=== PATIENT | female | born 1990 | race Caucasian/White ===

== ENCOUNTER 2019-07-20 07:57 | Outpatient (CLI) | payer OTHER, SELFPAY ==
--- NOTE | ~2019-07-20 | US_ITS ---
EXAMINATION: US right upper quadrant EXAM DATE: 07/20/2019 09:54 INDICATION: Right quadrant pain, nausea and vomiting. TECHNIQUE: Multiple grayscale and Doppler images of the abdomen right upper quadrant were obtained (b y a technologist who performed the scan) and subsequently reviewed. There is no prior study for kaley avelar. FINDINGS: The pancreatic head and body are normal in appearance. The pancreatic tail is not visualized. The l iver has normal echogenicity and contour. There are no focal liver lesions identified. There is no evidence of intrahepatic biliary duct dilation. Portal venous flow was seen in the hepatopedal, nor mal direction and has normal Doppler waveform. No right-sided hydronephrosis. Common bile duct measures 2-3 mm, which is normal. The gallbladder wall is upper limits of normal in thickness, with only mild amount of distention. No sonographic evidence of pericholecystic fluid. M ultiple gallstones. Technologist performing exam reports patient did not demonstrate sonographic Mur phy's sign. Please note that this sign is less reliable in patients who have received pain medicatio n. IMPRESSION: 1. Cholelithiasis. Reviewed, dictated and finalized at location B. 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 Cholelithiasis.
== END 2019-07-20 07:58 | disposition home or self-care (01) ==
LOC: CHSIMG 08:00
PROVIDERS: PCP Internal Medicine; Visit Provider Internal Medicine
DX: R10.11 Right upper quadrant pain (principal)
CPT/HCPCS: 76705

== ENCOUNTER 2019-10-13 05:07 | Outpatient (CLI) | payer OTHER, SELFPAY ==
[2019-10-13 18:41] LABS: SARS-CoV-2 RNA PCR Negative
== END 2019-10-13 05:08 | disposition home or self-care (01) ==
LOC: ANHCOVIDDT 05:07
PROVIDERS: PCP Internal Medicine; Visit Provider Surgery
DX: Z01.818 Encounter for other preprocedural examination (principal); Z11.59 Encounter for screening for other viral diseases
CPT/HCPCS: 87635; C9803; U0003

== ENCOUNTER 2019-10-13 08:30 | Outpatient (CLI) | payer OTHER, SELFPAY ==
[2019-10-13 09:24] LABS: Alanine Aminotransferase 82 U/L (4-35); Albumin Level 4.1 g/dL (3.5-5.1); Alkaline Phosphatase 79 U/L (38-126); Amylase 73 U/L (30-110); Aspartate Amino Transferase 46 U/L (14-36); Bilirubin,Total 0.7 mg/dL (0.2-1.3); Lipase 226 U/L (23-300)
== END 2019-10-13 08:31 | disposition home or self-care (01) ==
LOC: ANHSURGERY 08:33
PROVIDERS: PCP Internal Medicine; Visit Provider Surgery
DX: Z01.818 Encounter for other preprocedural examination (principal); K80.10 Calculus of gallbladder with chronic cholecystitis without obstruction
CPT/HCPCS: 36415; 80076; 82150; 83690; 86850; 86900; 86901

== ENCOUNTER 2019-10-16 02:06 | Day surgery (SDC) | payer OTHER, SELFPAY ==
[2019-10-12 10:40] VITALS: BMI 26.5
[2019-10-16] VITALS (9 sets, daily range): BP systolic 92–109; BP diastolic 52–73; PULSE 51–92; RESP 14–25; TEMP 36.6–37.2; O2SAT 99–100
[2019-10-16] MEDS: LACTATED RINGERS 1,000 ML 30 ML IV CONT ×2 (13:15→15:30)
--- NOTE | 2019-10-16 13:39 | WPDHPUPDATE1 ---
History and Physical Update Update Date/Time: 10/16/19 13:39 History and Physical has been reviewed, including an updated exam of the patient. There are NO changes in the patient's condition. Risks, benefits, and alternatives have been discussed and questions answered. Patient agrees to proceed with procedure.
--- NOTE | 2019-10-16 13:40 | WPDANESEPPF ---
Anes - Initial Pre Proc Eval Procedure: Operation Date: 10/16/19 15:00 Proposed Procedures p Laparoscopic Cholecystectomy Possible Open - Javon Nolasco DO Date/Time: 10/16/19 13:40 Surgeon: Javon Nolasco DO Pre Op Diagnosis: Symptomatic Cholelithiasis Patient Data Age: 28 Gender: F Height: 5 ft 3 in Weight: 68.04 kg Allergies Allergy/AdvReac Type Severity Reaction Status Date / Time adhesive tape Allergy Rash Verified 10/12/19 10:59 Home Medications Medication Instructions Recorded Confirmed Type No Home Medications 10/12/19 10/12/19 History Patient hx anesthesia problems: none Family hx anesthesia problems: none PMFSH Past Medical History Medical History Depression Endometriosis Kidney stone Over weight Post depression Smoker Surgical History Surgical History H/O knee surgery Family History Family History Father Diabetes mellitus Sibling Diabetes mellitus Grandparent Liver problem Hep C w/o coma, chronic Social History Social History Smoking packs per day: 0.5 Smoking cigarettes per day: 10.0 Years smoked: 13 Smoking pack-years: 6.50 Smoking status: Current every day smoker Tobacco type: cigarettes Substance use: never Gender identity (if verbalized by the patient): Female Spiritual care concerns: No Anes - Eval Final PreProcedure Day of Procedure 10/16/19 13:40 Patient weight: overweight Heart: regular rate and rhythm Lungs: clear to auscultation Airway: Mallampati scale class II Neurological: alert and oriented Last oral intake: >/= 8 hours ASA classification: II Emergent: no Anesthetic plan: proceed Anesthesia type and monitoring: general ETT and standard monitoring Informed Consent: The patient's anesthetic plan and its attendant risks and benefits were discussed with the patient/family/POA. Questions were solicited and answers provided to the satisfaction of the patient/family/POA.
[2019-10-16] MEDS: ceFAZolin 2 GM/D5W 50 ML 2 GM/50 ML BAG IVPB (13:50)
[2019-10-16] MEDS: IBUPROFEN IV 800 MG/200 ML 800 MG/200 ML BAG 400 MG IVPB (14:06)
[2019-10-16] MEDS: BUPIVACAINE/EPINEPHRINE 0.5% 30 ML VIAL INFILTRATE (14:10)
--- NOTE | 2019-10-16 14:43 | PM.PROC ---
Procedure Note - Detailed Date of procedure: 10/16/19 Pre-op diagnosis: Symptomatic Cholelithiasis Post-op diagnosis: same Procedure performed: Laparoscopic Cholecystectomy Description of procedure: Procedure as well as risks, benefits, and alternatives were discussed with patient. Written consent was obtained and placed in chart prior to procedure. The patient was brought back to surgical suite. Patient was placed in supine position on operating table. Time-out was done to confirm patient and procedure. Patient was then intubated by the anesthesia department. Abdomen was prepped and draped in sterile fashion using chlorhexidine prep. 0.5% bupivacaine with epinephrine was infiltrated at each site of incision. A 5 millimeter incision was made near the umbilicus, and a 5 millimeter Optiview trocar was advanced through the abdominal layers under direct visualization. Once inside the abdominal cavity, carbon dioxide was insufflated to create a pneumoperitoneum. The camera was inserted and the abdomen was inspected. No immediate abnormalities were identified. The patient was placed in reverse Trendelenburg position and rotated slightly to the left. An 11 millimeter incision was made in the subxiphoid region, and an 11 millimeter trocar was inserted under direct visualization. Two 5 millimeter incisions were made in the right upper quadrant, and two 5 millimeter trocars were inserted under direct visualization. The gallbladder was identified and grasped at the fundus and retracted superiorly. It was then grasped at the infundibulum retracted laterally. Careful dissection around the neck of the gallbladder was performed using blunt dissection with a [place] grasper and hook electrocautery. The cystic duct was identified, and a window was created behind it. The cystic artery was also identified and a window was created behind it. The critical view of safety was identified, visualizing the cystic duct running directly into the neck of the gallbladder, and the cystic artery running directly into the wall of the gallbladder. A 5 millimeter clip tank farm operator was then used to place 2 clips proximally and 1 clip distally on both the cystic duct and cystic artery. They were then both transected using endoscopic scissors. Once safely away from the celeste hepatitis, the gallbladder was dissected free from the liver bed using hook electrocautery. Hemostasis was achieved along the way. The gallbladder was removed completely and then removed through the subxiphoid port. The liver bed was then inspected. Hemostasis appeared adequate, and our clips appeared secure. The area was gently irrigated with sterile saline. No other abnormalities were seen. The patient was flattened out in bed, and 1 final inspection was made around the abdominal cavity. The subxiphoid port was removed, and a Alton Crispin cone was used to approximate the fascia with an 0-Vicryl simple interrupted suture. The remaining ports were then removed under direct visualization, the camera was removed, and the pneumoperitoneum was released. The skin of the incisions was approximated using 4-0 Monocryl subcuticular sutures. Exofin glue was applied on top. The patient was then awakened from anesthesia, extubated, and transferred to recovery. Anesthesia: GETA and local (0.5% bupivicaine with epi) Surgeon: Javon Nolasco DO Estimated blood loss (mL): 10 Drains: No Packing: No Pathology: yes Complications: No immediate complications Condition: stable (Patient tolerated procedure well, and is currently resting comfortably in recovery.) Disposition: same day Findings: Lupe is a 28 y/o female who presents with RUQ abdominal pain. She states she has been experiencing symptoms on and off for about 1 month now. She doesn't notice any paticular foods that make her symptoms worse. She describes the pain as aching and sharp. U/S was done at on 07/20/19 which showed cholelithiasis. CBD measured 2-3mm. Disc
[2019-10-16] MEDS: ONDANSETRON INJ 4 MG/2 ML VIAL IV PUSH (15:21)
== END 2019-10-16 16:31 | disposition home or self-care (01) ==
PROVIDERS: PCP Internal Medicine; Visit Provider Surgery
PROC: 0FT44ZZ Resection of Gallbladder, Percutaneous Endoscopic Approach (ICD-10-PCS; CPT 47562; principal; 2019-10-16 15:00)
DX: K80.10 Calculus of gallbladder with chronic cholecystitis without obstruction (principal); F17.210 Nicotine dependence, cigarettes, uncomplicated
CPT/HCPCS: 47562; 88304; J0131; J0690; J1100; J1741; J2250; J2405; J2704; J2710; J3010; J7030; J7120

== ENCOUNTER 2019-12-21 02:57 | Outpatient (CLI) | payer OTHER, SELFPAY ==
[2019-12-22 22:30] LABS: SARS-CoV-2 RNA PCR Negative
== END 2019-12-21 02:58 | disposition home or self-care (01) ==
LOC: ANHCOVIDDT 02:57
PROVIDERS: PCP Internal Medicine; Visit Provider Obstetrics & Gynecology
DX: Z01.812 Encounter for preprocedural laboratory examination (principal); Z11.59 Encounter for screening for other viral diseases
CPT/HCPCS: 87635; C9803; U0003

== ENCOUNTER 2019-12-23 02:14 | Day surgery (SDC) | payer OTHER, SELFPAY ==
[2019-12-09 14:48] VITALS: BMI 26.6
--- NOTE | 2019-12-22 13:44 | WPDANESEPPF ---
Anes - Initial Pre Proc Eval Procedure: Operation Date: 12/23/19 09:00 Proposed Procedures p Laparoscopic Bilateral Tubal Ligation with Cautery - Piyush Carmona MD Date/Time: 12/22/19 13:44 Surgeon: Piyush Carmona MD Pre Op Diagnosis: sterilization Patient Data Age: 29 Gender: F Height: 1.63 m Weight: 70.31 kg Allergies Allergy/AdvReac Type Severity Reaction Status Date / Time adhesive tape Allergy Rash Verified 12/09/19 14:49 Home Medications Medication Instructions Recorded Confirmed Type alprazolam 0.5 mg PO DAILY 12/23/19 12/23/19 History Patient hx anesthesia problems: none Family hx anesthesia problems: none PMFSH Past Medical History Medical History Anxiety Depression Endometriosis Kidney stone Over weight Post depression Smoker Surgical History Surgical History H/O knee surgery Hx laparoscopic cholecystectomy Social History Social History Smoking packs per day: 0.5 Smoking cigarettes per day: 10.0 Years smoked: 15 Smoking pack-years: 7.50 Smoking status: Current every day smoker Tobacco type: cigarettes Substance use: never Substance use type: other Other substance usage details: SMOKES CBD Last use: 12/08/19 Gender identity (if verbalized by the patient): Female Spiritual care concerns: No Anes - Eval Final PreProcedure Day of Procedure 12/22/19 13:44 Patient weight: overweight Heart: regular rate and rhythm Lungs: clear to auscultation and normal air movement Airway: Mallampati scale class II Neurological: alert and oriented Last oral intake: >/= 8 hours ASA classification: II Emergent: no Anesthetic plan: proceed Anesthesia type and monitoring: general ETT Informed Consent: The patient's anesthetic plan and its attendant risks and benefits were discussed with the patient/family/POA. Questions were solicited and answers provided to the satisfaction of the patient/family/POA.
[2019-12-23] VITALS (9 sets, daily range): BP systolic 91–111; BP diastolic 48–74; PULSE 42–98; RESP 14–20; TEMP 36.3–36.7; O2SAT 97–100
[2019-12-23] MEDS: ACETAMINOPHEN 500 MG TABLET 1000 MG PO (07:40)
[2019-12-23] MEDS: LACTATED RINGERS 1,000 ML 30 ML IV CONT ×2 (07:45→09:17)
[2019-12-23] MEDS: KETOROLAC 15 MG/ML VIAL (*BKC) IV PUSH (07:45)
--- NOTE | 2019-12-23 08:21 | WPDHPUPDATE1 ---
History and Physical Update Update Date/Time: 12/23/19 08:21 History and Physical has been reviewed, including an updated exam of the patient. There are NO changes in the patient's condition. Risks, benefits, and alternatives have been discussed and questions answered. Patient agrees to proceed with procedure.
--- NOTE | 2019-12-23 09:06 | SUR.OPER ---
EBL:10cc
--- NOTE | 2019-12-23 09:12 | PM.PROC ---
Procedure Note - Detailed Date of procedure: 12/23/19 Pre-op diagnosis: sterilization Post-op diagnosis: same Procedure performed: Laparoscopic bilateral tubal ligation Description of procedure: Patient was taken the operating room. She has prepped draped in the dorsal lithotomy position after induction of general anesthesia. A 5 mm abdominal incision was made in left upper quadrant of the abdomen with scalpel. A 5 mm trocars inserted the intra-abdominal cavity under direct visualization of the scope. Pneumoperitoneum was achieved. A 5 mm periumbilical incision was made using a scalpel on the abdominal scan. A 5 mm trocar was inserted the intra-abdominal cavity under visualization of the scope. The fallopian tube was grasped with the bipolar cautery in the ampullary region. It was completely desiccated in a 1.5 cm area of the fallopian tube. This was performed in identical fashion on the contralateral side. The instruments were withdrawn. The pneumoperitoneum was reduced. The trocars were removed. The skin was closed with subcuticular 4 Monocryl. This incisions were covered with Dermabond. The patient tolerated the procedure well. She was taken to recover room in stable condition. Anesthesia: GETA Surgeon: Piyush Carmona MD Estimated blood loss (mL): 10 Drains: No Packing: No Pathology: none sent Complications: No immediate complications Condition: stable Disposition: PACU Findings: Normal female pelvic anatomy.
--- NOTE | 2019-12-23 11:11 | SUR.PHASEII ---
1110- Instructions given to pt. ride called to come. pt without c/o pain or nausea.
== END 2019-12-23 11:45 | disposition home or self-care (01) ==
PROVIDERS: PCP Internal Medicine; Visit Provider Obstetrics & Gynecology
PROC: (CPT 58671; principal; 2019-12-23 09:00)
DX: Z30.2 Encounter for sterilization (principal); F41.8 Other specified anxiety disorders; F17.210 Nicotine dependence, cigarettes, uncomplicated
CPT/HCPCS: 58670; A9270; J1100; J1885; J2250; J2405; J2704; J2710; J3010; J7120

== ENCOUNTER 2020-07-24 09:51 | Emergency (ER) | payer OTHER, SELFPAY ==
[2020-07-24 10:07] VITALS: BP 123/75; PULSE 77; RESP 16; TEMP 36.9; O2SAT 97
--- NOTE | 2020-07-24 10:28 | ED.DENTAL ---
HPI - Dental/Oral General Chief complaint: Dental/Oral Stated complaint: possible infected tooth Source: patient Mode of arrival: ambulatory Limitations: no limitations History of Present Illness HPI Narrative: this is a 29-year-old female that has chronic dental caries and over the last day has been having increased pain with swelling in her right upper premolar area with surrounding gum inflammation with a tender submandibular gland on the right with some lower jaw swelling and tenderness. Currently there is no fever chills no nausea vomiting no shortness of breath, does have an appointment to see her dentist. Has tried [id number] Aleve with some moderate relief. MD Complaint: tooth pain Teeth map: 1. dental pain with gum inflammation Onset (ago): day(s) Duration: constant Severity: moderate Severity scale (1-10): 6 Relieving factors: NSAIDs Exacerbating factors: chewing and cold Context: history of dental caries Associated symptoms: gum swelling Related Data Home Medications Medication Instructions Recorded Confirmed escitalopram oxalate 10 mg PO DAILY 07/24/20 07/24/20 Allergies Allergy/AdvReac Type Severity Reaction Status Date / Time adhesive tape Allergy Rash Verified 12/09/19 14:49 Review of Systems Review of Systems: All systems reviewed & are unremarkable except as noted in HPI and below PMFSH Past Medical History Medical History Anxiety Depression Endometriosis Kidney stone Over weight Post depression Smoker Surgical History Surgical History H/O knee surgery Hx laparoscopic cholecystectomy Family History Family History Father Diabetes mellitus Sibling Diabetes mellitus Grandparent Liver problem Hep C w/o coma, chronic Social History Social History Smoking packs per day: 0.5 Smoking cigarettes per day: 10.0 Years smoked: 15 Smoking pack-years: 7.50 Smoking status: Current every day smoker Tobacco type: cigarettes Substance use: never Substance use type: other Other substance usage details: SMOKES CBD Last use: 12/08/19 Gender identity (if verbalized by the patient): Female Spiritual care concerns: No Exam Const: General: no acute distress Orientation/consciousness: patient oriented x3 HENMT: Head: normal to inspection Eyes: Conjunctivae: conjunctivae normal Pupils: Equal, round and reactive pupils present Neck: Neck: normal visual inspection and no meningeal signs Other: Right submandibular gland swelling and tenderness Chest: Chest palpation & inspection: normal inspection of the chest Resp: Effort & Inspection: normal respiratory effort Auscultation: clear to auscultation bilaterally Cardio: Rate: regular rate Rhythm: regular rhythm GI: Auscultation: normal bowel sounds : General: Yes no CVA tenderness Skin: General skin exam: normal color Rashes: no rashes Extrem: General: normal to inspection Course Course Emergency Course: patient received amoxicillin and advised patient to take medicine that sent to her pharmacy and follow-up with her dentis Vital Signs Vital signs: Vital Signs Temperature 36.9 C 07/24/20 10:07 Pulse Rate 77 07/24/20 10:07 Respiratory Rate 16 07/24/20 10:07 Blood Pressure 123/75 07/24/20 10:07 Pulse Oximetry 97 07/24/20 10:07 Temperature 36.9 C 07/24/20 10:07 Pulse Rate 77 07/24/20 10:07 Respiratory Rate 16 07/24/20 10:07 Blood Pressure 123/75 07/24/20 10:07 Pulse Oximetry 97 07/24/20 10:07 Critical Care Time Critical Care Time Critical Care Time: No Discharge Plan Discharge Clinical Impression: Dental abscess, Toothache Patient Disposition: Home, Self-Care Condition: Stable Instructions: Antibiotic Form, Dental Abscess (ED), Toothache (ED) Additional
[2020-07-24 10:36] VITALS: PULSE 80; RESP 18; O2SAT 99
[2020-07-24] MEDS: AMOXICILLIN 500 MG CAPSULE PO (10:36)
== END 2020-07-24 10:40 | disposition home or self-care (01) ==
PROVIDERS: Emergency Provider Emergency Medicine; PCP Internal Medicine
DX: K04.7 Periapical abscess without sinus (principal); K08.89 Other specified disorders of teeth and supporting structures
CPT/HCPCS: 99283; A9270

== ENCOUNTER 2021-11-17 15:18 | Outpatient (CLI) | payer OTHER, SELFPAY ==
--- NOTE | ~2021-11-17 | XR_ITS ---
XR wrist RT min 3V DATE: 11/17/2021 15:50 INDICATION: Left wrist pain after hearing pops in wrist since last night TECHNIQUE: 4 views COMPARISON: None FINDINGS: No fracture or dislocation, periosteal reaction or bone destruction, chondrocalcinosis, roopa nt space narrowing, erosive change. There is an elongated ulnar styloid process. IMPRESSION: Elongated ulnar styloid process Reviewed, dictated and finalized at location A.
== END 2021-11-17 15:19 | disposition home or self-care (01) ==
LOC: CHSIMG 15:20
PROVIDERS: PCP Internal Medicine; Visit Provider Nurse Practitioner Family
DX: M25.531 Pain in right wrist (principal)
CPT/HCPCS: 73110

== ENCOUNTER 2021-12-05 14:01 | Outpatient (RCR) | payer OTHER, SELFPAY ==
--- NOTE | 2021-12-05 15:12 | OTOPEVAL ---
Thank you for referring Lupe Birch to [facility] [place]Note 2[place]? The patient is scheduled to be seen for therapy? ____x/week for ___ weeks. Please review, sign, date and return this plan of care ASHANTI. I agree with and certify that the following plan of care is medically necessary. Referring Physician Date Admitting Provider: Attending Provider: Elda Vargas MD Referring Provider: *OT Outpatient Evaluation Start: 12/05/21 13:25 Freq: Status: Active Protocol: Document 12/05/21 14:04 [facility] (Rec: 12/05/21 15:12 [facility] [id number]) Therapy Assessment Status Assessment Status Assessment Status Evaluation Outpatient Past Medical History Neurological History Hx Neurological Disorders No Significant History Cardiovascular History Hx Cardiac Disorders No Significant History Respiratory History Hx Respiratory Disorders No Significant History Gastrointestinal History Hx Cholecystectomy Yes: 09/2019 Hx Gall Bladder Disease Yes Genitourinary History Hx Urinary Tract Infection Yes Musculoskeletal History Hx Orthopedic Surgery Yes: knee surgery Hematological History Hx Hematological Disorders No Significant History Endocrine History Hx Endocrine Disorders No Significant History HEENT History Hx HEENT Disorders No Significant History Integumentary History Hx Skin Disorders No Significant History Reproductive History Hx Endometriosis Yes Hx Sexually Transmitted Diseases Yes: trichomoniasis Psychosocial History Hx Anxiety Yes Hx Depression Yes Pain History History of Any Previous or Ongoing No Significant History Instance of Pain Anesthesia History Hx Anesthesia Reactions No Significant History Evaluation Information Problem Diagnosis R wrist pain Onset 11/19/21 Cause R wrist sprain Additional Evaluation Detail Quick DASH: 68.2% Subjective Information Patient reports that she Query Text:As Reported By Patient/ grabbed a bar using her R hand Family to lower herself to sitting on a large slide. She said that it popped a couple times, had pain and immediate swelling. Patient had X-rays taken that were negative. Patient arrives with R wrist support brace donned and reports that she has been wearing it and taking an anti- flammatory medication. Patient reports that she feels
--- NOTE | 2022-01-12 16:24 | OTOPEVAL ---
Thank you for referring Lupe Birch to [facility].? The patient is scheduled to be seen for therapy? ____x/week for ___ weeks. Please review, sign, date and return this plan of care ASHANTI. I agree with and certify that the following plan of care is medically necessary. Referring Physician Date Admitting Provider: Attending Provider: Elda Vargas MD Referring Provider: *OT Outpatient Evaluation Start: 12/05/21 13:25 Freq: Status: Active Protocol: Document 01/12/22 11:13 [facility] (Rec: 01/12/22 12:14 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 Subjective Information The patient reports minimal Query Text:As Reported By Patient/ pain throughout the day and Family asks about switching to a different brace. The patient reports that she can move her wrist easier and with decreased pain. Pain Assessment Timing of Pain Assessment Timing of Pain Assessment Pre-Treatment Pain Scale Pain Scale Used Numeric (1 - 10) Self Report Pain Assessment Right Wrist(s) Reported Pain Level 2 Pain Score Pain Score 2: Self Report Interventions Used Interventions Used By Clinicians Electrical Stimulation,Heat Upper Extremity Range of Motion General Upper Extremity Range of Motion Gross Upper Extremity Range of Motion Wrist flexion: 55 degrees Comments Wrist extension: 55 degrees Upper Extremity Muscle Strength Testing General Upper Extremity Strength Gross Upper Extremity Strength Comments R wrist flexion/extension 5/5 Hand Assembler Clip On Sunglasses/Pinch Strength Assessment Hand Dominance Hand Dominance Right Hand Right Assembler Clip On Sunglasses Strength (lbs) 36 Lateral Pinch Strength (lbs) 8.5 9-Hole Peg Hand Test Hand Right Hand Dominance Right Scoring Time (seconds) 22 Interpretation Within Normal Range General Exercise General Exercises Side Right Exercise Type Resistive,Stretching Exercise Description PROM stretching into wrist Query Text:Record Sets, Reps, flexion/extension holding for Resistance, and Position 10 seconds 1x10 Wrist maze performing 1x10 [place] theraputty exercises performing composite grasps 2x10 Modalities Electri
== END 2022-01-22 23:59 | disposition home or self-care (01) ==
LOC: CHSOT 14:01
PROVIDERS: PCP Internal Medicine; Visit Provider Internal Medicine
DX: S63.501A Unspecified sprain of right wrist, initial encounter (principal)
CPT/HCPCS: 97014; 97110; 97140; 97165; 97530; G0283

== ENCOUNTER 2022-08-10 19:20 | Emergency (ER) | payer OTHER, SELFPAY ==
[2022-08-10] VITALS (10 sets, daily range): BP systolic 99–122; BP diastolic 58–74; PULSE 62–74; RESP 16–19; TEMP 36.4–37.1; O2SAT 96–99
--- NOTE | ~2022-08-10 | CT_ITS ---
EXAMINATION: CT BRAIN W/O DATE: 08/10/2022 21:48 INDICATION: Migraine headache worse than normal. TECHNIQUE: Computed tomography (CT) of the head was performed without intravenous contrast. The dose- length product was 908.00 mGy-cm. Automated exposure control and iterative reconstruction technique w ere employed. COMPARISON: CT dated 04/26/2014 FINDINGS: Normal brain parenchymal volume for age. Normal mayo-white differentiation. No acute intrac ranial hemorrhage, infarction, mass or mass effect. No ventriculomegaly or midline shift. Midline sagittal images demonstrate a normal corpus callosum, c raniovertebral junction and sella turcica. Basilar cisterns are patent. Paranasal sinuses and mastoids are pneumatized. No depressed skull fractures. IMPRESSION: 1. No acute intracranial abnormality. Reviewed, dictated and finalized at location A.
[2022-08-10] MEDS: SODIUM CHLORIDE 0.9% IV 1,000 ML 999 ML IV CONT (21:32)
[2022-08-10] MEDS: METOCLOPRAMIDE HCL INJ 10 MG/2 ML VIAL IV PUSH (21:33)
[2022-08-10] MEDS: KETOROLAC 30 MG/ML VIAL (*BKC) IV PUSH (21:36)
--- NOTE | 2022-08-10 21:46 | PC.NURSE ---
Patient in CT at this time.
--- NOTE | 2022-08-10 23:04 | ED.HA ---
HPI - Headache General Chief Complaint: Headache <DELORES Ang Last Filed: 08/10/22 23:19> Stated Complaint: migraines <DELORES Ang Last Filed: 08/10/22 23:19> Time Seen by Provider: 08/10/22 20:11 <DELORES Ang Last Filed: 08/10/22 23:19> Source: patient <DELORES Ang Last Filed: 08/10/22 23:19> Mode of arrival: ambulatory <DELORES Ang Last Filed: 08/10/22 23:19> Limitations: no limitations <DELORES Ang Last Filed: 08/10/22 23:19> History of Present Illness HPI Narrative: Patient is a 31-year-old female who presents to the ED with report of a migraine headache. Patient reports having a headache for the last 3 to 4 days. She does have a history of migraines and states this headache feels similar. Today, the headache became much more severe, which prompted her presentation. Patient also reports having nausea, photophobia, intermittent blurry vision, and fatigue, but denies any fever, neck pain, abdominal pain, vomiting, vision loss, weakness, confusion, head injury. <DELORES Ang Last Filed: 08/10/22 23:19> Related Data Home Medications: Home Medications Medication Instructions Recorded Confirmed escitalopram oxalate 10 mg tablet 10 mg PO DAILY 07/24/20 07/24/20 <DELORES Ang Last Filed: 08/10/22 23:19> Allergies/Adverse Reactions: Allergies Allergy/AdvReac Type Severity Reaction Status Date / Time adhesive tape Allergy Rash Verified 08/10/22 19:21 <DELORES Ang Last Filed: 08/10/22 23:19> Review of Systems Review of Systems: CONSTITUTIONAL: Denies fever, chills, or sweats. EYES: See HPI. ENT: Denies rhinorrhea, congestion, sore throat. CARDIOVASCULAR: Denies chest pain. RESPIRATORY: Denies dyspnea. GASTROINTESTINAL: See HPI. MUSCULOSKELETAL: Denies neck pain, back pain, joint pain, or myalgia. NEUROLOGIC: See HPI. <Suki Lay PA-C - Last Filed: 08/10/22 23:19> All systems reviewed & are unremarkable except as noted in HPI and below <Suki Lay PA-C - Last Filed: 08/10/22 23:19> [facility] Past Medical History Medical History: Medical History Anxiety Depression Endometriosis Kidney stone Over weight Post depression Smoker <Suki Lay PA-C - Last Filed: 08/10/22 23:19> Surgical History Surgical History: Surgical History H/O knee surgery Hx laparoscopic cholecystectomy <Suki Lay PA-C - Last Filed: 08/10/22 23:19> Family History Family History: Family History Father Diabetes mellitus Sibling Diabetes mellitus Grandparent Liver problem Hep C w/o coma, chronic <Suki Lay PA-C - Last Filed: 08/10/22 23:19> Social History Social History: Social History Smoking packs per day: 0.5 Smoking cigarettes per day: 10.0 Years smoked: 15 Smoking pack-years: 7.50 Smoking status: Current every day smoker Tobacco type: cigarettes Substance use: never Substance use type: other Other substance usage details: SMOKES CBD Last use: 12/08/19 Gender identity (if verbalized by the patient): Female Spiritual care concerns: No <Suki Lay PA-C - Last Filed: 08/10/22 23:19> Exam Narrative: GENERAL: Well appearing, obese, non-toxic, in no acute distress. HEAD: Normocephalic, atraumatic. EYES: PERRL/EOMI, conjunctivae clear bilaterally. No nystagmus. NECK: Supple. No adenopathy, no masses. No meningeal signs. RESPIRATORY: Airway patent, respirations nonlabored. Clear to auscultation bilaterally, no rales, rhonchi, wheezing. CARDIOVASCULAR: Regular rate and rhythm without murmurs, rubs, or gallops. Peripheral pulses 2+
== END 2022-08-10 23:20 | disposition home or self-care (01) ==
PROVIDERS: Emergency Provider Physician Assistant; PCP Internal Medicine
DX: G43.909 Migraine, unspecified, not intractable, without status migrainosus (principal); N80.9 Endometriosis, unspecified; E66.3 Overweight; Z68.30 Body mass index [BMI] 30.0-30.9, adult; F41.9 Anxiety disorder, unspecified; F32.A Depression, unspecified; F17.210 Nicotine dependence, cigarettes, uncomplicated; Z87.442 Personal history of urinary calculi
CPT/HCPCS: 70450; 81025; 96361; 96374; 96375; 99284; J0131; J1100; J1885; J2765; J7030

== ENCOUNTER 2023-07-19 15:24 | Emergency (ER) | payer OTHER, SELFPAY ==
[2023-07-19 15:31] VITALS: BP 126/69; PULSE 105; RESP 16; TEMP 37.2; O2SAT 93
--- NOTE | 2023-07-19 15:33 | ED.HA ---
HPI - Headache General Chief Complaint: Headache Stated Complaint: Migrane Time Seen by Provider: 07/19/23 15:33 Source: patient Mode of arrival: ambulatory Limitations: no limitations History of Present Illness HPI Narrative: patient is a 32-year-old female with sinus pain and pressure and headache. She has history of migraines as well. Her menstrual cycle was 2 weeks ago. MD elicited complaint: headache and migraine Onset (ago): day(s) (3) Onset description: gradually Location: left, frontal, facial and maxillary Severity: moderate Pain scale (0-10): 5 Quality & Timing: sharp, squeezing, constant, progressively worsening and similar to previous headaches Exacerbating factors: none Relieving factors: nothing Associated symptoms: none Treatments prior to arrival: none Related Data Allergies Allergy/AdvReac Type Severity Reaction Status Date / Time adhesive tape Allergy Rash Verified 07/19/23 15:35 Review of Systems Review of Systems: All systems reviewed & are unremarkable except as noted in HPI and below Constitutional: Constitutional: Reports no additional constitutional complaints Eyes: Eyes: Reports no additional eye complaints ENT: Reports system reviewed and no additional complaints, except as documented Cardiovascular: Cardiovascular: Reports no additional cardiovascular complaints Respiratory: Respiratory: Reports no additional respiratory complaints Gastrointestinal: Gastrointestinal: Reports no additional gastrointestinal complaints Genitourinary: Genitourinary: Reports no additional female genitourinary complaints Musculoskeletal: Musculoskeletal: Reports no additional musculoskeletal complaints Integumentary/Breasts: Skin/Breast: Reports system reviewed and no additional complaints, except as docu Neurologic: Reports system reviewed and no additional complaints, except as documented Psychiatric: Psychiatric: Reports no additional psychiatric complaints Endocrine: Endocrine: Reports no additional endocrine complaints Hematologic/Lymphatic: Hematologic/Lymphatic: Reports no additional hematologic/lymphatic complaints Allergic/Immunologic: Allergic/Immunologic: Reports no additional allergic/immunologic complaints PMFSH Past Medical History Medical History Anxiety Depression Endometriosis Kidney stone Over weight Post depression Smoker Surgical History Surgical History H/O knee surgery Hx laparoscopic cholecystectomy Family History Family History Father Diabetes mellitus Sibling Diabetes mellitus Grandparent Liver problem Hep C w/o coma, chronic Social History Social History Smoking packs per day: 0.5 Smoking cigarettes per day: 10.0 Years smoked: 15 Smoking pack-years: 7.50 Smoking status: Current every day smoker Tobacco type: cigarettes Substance use: never Substance use type: other Other substance usage details: SMOKES CBD Last use: 12/08/19 Gender identity (if verbalized by the patient): Female Spiritual care concerns: No Exam Const: General: healthy appearing Nutritional Appearance: well nourished Orientation/consciousness: patient oriented x3 HENMT: Head: normal to inspection Ears: external ears normal Face/Nose/Sinus: Normal external nose present Eyes: Conjunctivae: conjunctivae normal Pupils: Equal, round and reactive pupils present EOM: EOMs intact bilaterally Neck: Neck: normal visual inspection Chest: Chest palpation & inspection: normal inspection of the chest Resp: Effort & Inspection: normal respiratory effort and not labored Auscultation: clear to auscultation bilaterally and no crackles Cardio: Rate: regular rate Rhythm: regular rhythm Heart sounds: no murmurs GI: Inspection: non-distended GI Palp: Yes Soft to palpation and No Tenderne
[2023-07-19 15:46] LABS: Appearance Urine Clear (Clear); Bilirubin Urine 1+ (Negative); Blood Urine Trace-Intact (Negative); Glucose Urine UA Negative (Negative); Ketones Urine Negative (Negative); Leukocyte Esterase Ur Negative (Negative); Nitrate Urine Negative (Negative); Protein Urine Trace (Negative); Specific Grav Ur >= 1.030 (1.010-1.020); pH Urine 5.5 (5.0-8.0)
[2023-07-19 15:49] LABS: Pregnancy On Board Control Positive; Urine Pregnancy Test Negative
[2023-07-19 15:50] LABS: Add Urine Microscopic? YES; Bacteria Urine 1+ /hpf; Color Urine Dark Yellow (Yellow); RBC Urine 0-2 /hpf (0-2); Squamous Epithelial Cell Urine Moderate /hpf (Few); WBC Urine None seen /hpf (0-3)
[2023-07-19] MEDS: KETOROLAC (*BKC) 60 MG/2 ML VIAL IM (15:55)
== END 2023-07-19 16:07 | disposition home or self-care (01) ==
LOC: CHSED 16:04
PROVIDERS: Emergency Provider Emergency Medicine; PCP Internal Medicine
DX: J01.00 Acute maxillary sinusitis, unspecified (principal); F17.210 Nicotine dependence, cigarettes, uncomplicated
CPT/HCPCS: 81001; 81025; 96372; 99283; J1885

== ENCOUNTER 2024-04-13 08:29 | Emergency (ER) | payer OTHER, SELFPAY ==
--- NOTE | ~2024-04-13 | XR_ITS ---
EXAMINATION: XR knee LT 3V DATE: 04/13/2024 08:59 INDICATION: Generalized left knee pain TECHNIQUE: Anteroposterior, oblique and crosstable lateral views of the left knee were obtained COMPARISON: None. FINDINGS: Mild old healed patellar fracture deformity with minimal residual irregularity along the articular co rtex. Bone alignment is normal. No acute fracture. Joint spaces appear relatively preserved on nonwei ghtbearing imaging. No osteophytosis. Soft tissues are unremarkable with no joint effusion. IMPRESSION: 1. No left knee joint effusion or acute osseous abnormality. 2. Old healed patellar fracture with minimal residual deformity. Reviewed, dictated and finalized at location B. 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
[2024-04-13 08:33] VITALS: BP 124/81; PULSE 95; RESP 18; TEMP 36.6; O2SAT 95
--- NOTE | 2024-04-13 08:34 | ED.LOWEXIN ---
HPI - Extremity Injury (Lower) General Chief Complaint: Extremity Injury, Lower Stated Complaint: knee pain Time Seen by Provider: 04/13/24 08:33 History of Present Illness HPI Narrative: PATIENT IS TRYING TO CROSS HER LEGS 3 DAYS AGO, FELT POP AT THE LEFT KNEE, BEEN SORE SINCE. SHE DENIES ANY SPECIFIC TRAUMA. HISTORY OF LEFT KNEE SURGERY YEARS AGO WITH INTERMITTENT PAIN. Related Data Allergies Allergy/AdvReac Type Severity Reaction Status Date / Time adhesive tape Allergy Rash Verified 07/19/23 15:35 Review of Systems Review of Systems: All systems reviewed & are unremarkable except as noted in HPI and below PMFSH Past Medical History Medical History Anxiety Depression Endometriosis Kidney stone Over weight Post depression Smoker Surgical History Surgical History H/O knee surgery Hx laparoscopic cholecystectomy Family History Family History Father Diabetes mellitus Sibling Diabetes mellitus Grandparent Liver problem Hep C w/o coma, chronic Social History Social History Smoking packs per day: 0.5 Smoking cigarettes per day: 10.0 Years smoked: 15 Smoking pack-years: 7.50 Smoking status: Current every day smoker Tobacco type: cigarettes Substance use: never Substance use type: other Other substance usage details: SMOKES CBD Last use: 12/08/19 Gender identity (if verbalized by the patient): Female Spiritual care concerns: No Exam Narrative: GENERAL APPEARANCE: WELL-DEVELOPED, WELL-NOURISHED SKIN: NORMAL COLOR HEAD: NORMOCEPHALIC, NONTRAUMATIC EYES: CLEAR CONJUNCTIVA NECK: SUPPLE, NONTENDER CHEST AND RESPIRATORY: AIRWAY PATENT, NO RESPIRATORY DISTRESS, NO ACCESSORY MUSCLE USE HEART: REGULAR RATE/RHYTHM VASCULAR: NORMAL PERIPHERAL PULSES, NORMAL CAPILLARY REFILL. MUSCULOSKELETAL: LEFT KNEE EXAM SHOWED NO DEFORMITY, NO WARMTH, NO ERYTHEMA, SLIGHTLY SWOLLEN, DIFFUSE TENDERNESS ANTERIORLY, LIMITED RANGE OF MOTION. NEUROLOGIC: ALERT AND ORIENTED ?3, Course Vital Signs Vital signs: Vital Signs Temperature 36.6 C 04/13/24 08:33 Pulse Rate 95 04/13/24 08:33 Respiratory Rate 18 04/13/24 08:33 Blood Pressure 124/81 04/13/24 08:33 Pulse Oximetry 95 04/13/24 08:33 Oxygen Delivery Room Air 04/13/24 08:33 Temperature 36.6 C 04/13/24 08:33 Pulse Rate 95 04/13/24 08:33 Respiratory Rate 18 04/13/24 08:33 Blood Pressure 124/81 04/13/24 08:33 Pulse Oximetry 95 04/13/24 08:33 Oxygen Delivery Room Air 04/13/24 08:33 MDM - Extremity Injury (Lower) MDM Narrative Medical decision making narrative: PATIENT PRESENTS WITH LEFT KNEE PAIN AFTER TRYING TO CROSS HER LEGS DIFFERENTIAL DIAGNOSIS INCLUDES SPRAIN/STRAIN X-RAY OF THE LEFT KNEE SHOWED NO ACUTE OSSEOUS ABNORMALITY, DISCHARGED ON KNEE IMMOBILIZER, AND ANTI-INFLAMMATORY MEDICATIONS. Differential Diagnosis Differential diagnosis: Likely other ( ABOVE) Imaging Data Radiologist's impression: Impressions Knee X-Ray 04/13/24 09:00 IMPRESSION: 1. No left knee joint effusion or acute osseous abnormality. 2. Old healed patellar fracture with minimal residual deformity. Critical Care Time Critical Care Time Critical Care Time: No Discharge Plan Discharge Clinical Impression: Knee pain, left Patient Disposition: Home, Self-Care Condition: Stable Instructions: Knee Sprain (DC), Knee Immobilizer (ED) Prescriptions: New naproxen [Naprosyn] 500 mg tablet 500 mg PO BID PRN (Reason: pain) Qty: 20 0RF No Action amoxicillin-pot clavulanate [Augmentin] 500-125 mg tablet 1 tablet PO BID 10 Days Qty: 20 0RF prednisone 20 mg tablet 20 mg PO DAILY 3 Days Qty: 3 0RF Follow-up/Referrals: Elda Vargas MD [Primary Care Provider] - Stand Alone Forms: Work/School Release IP
[2024-04-13 09:19] VITALS: BP 147/78; PULSE 77; RESP 20; TEMP 36.6; O2SAT 95
== END 2024-04-13 09:23 | disposition home or self-care (01) ==
LOC: CHSED 09:06
PROVIDERS: Emergency Provider Emergency Medicine; PCP Internal Medicine
DX: M25.562 Pain in left knee (principal); F17.210 Nicotine dependence, cigarettes, uncomplicated
CPT/HCPCS: 73562; 99283; L1830

== ENCOUNTER 2024-06-02 14:54 | Outpatient (RCR) | payer OTHER, SELFPAY ==
--- NOTE | 2024-06-02 15:46 | OPREHPOC ---
Outpatient Therapy Plan of Care This is a Multidisciplinary Plan of Care that may contain components documented by all disciplines (PT, OT, and ST.) PT Problem 1 PT Problem #1 Knowledge Deficit PT Goal 1 Goal / Goal Update 1. independent and compliant with HEP Target Visit 6 PT Problem 2 PT Problem #2 Pain PT Goal 1 Goal / Goal Update 1. decrease pain at worst to 1/10 or less in the last week. Target Visit 12 PT Problem 3 PT Problem #3 Impaired Range of Motion PT Goal 1 Goal / Goal Update 1. 0-120 active L knee rom Target Visit 12 PT Problem 4 PT Problem #4 Impaired Strength PT Goal 1 Goal / Goal Update 1. 4+/5 or better bilateral hip strength 2. 5/5 L knee strength Target Visit 12 PT Problem 5 PT Problem #5 Impaired Functional Mobility PT Goal 1 Goal / Goal Update 1. LEFS to display 20% or less functional deficits 2. patient to tolerate 30 minutes standing exercise without increased pain or rest 3. patient to squat and lift 40lbs from floor safely with good mechanics and no pain Target Visit 12
--- NOTE | 2024-06-02 15:46 | PTOPEVAL1 ---
Assessment and note entered by JT File, PT Evaluation Information Assessment Status Evaluation ICD-10 Condition Codes (PT) Pain in left knee M25.562 Onset 03/27/24 Subjective Information patient reports she stood up and with a bent knee off the ground she felt several pops in the L knee . she reports the pops were felt across the knee on both the inside and outside. she reports she has increased pain with standing and bending activities. she reports she has had an xray recently, but she reports she was not informed of any results. patient reports she has a history of knee cap surgery back in 2019 and hardware removal from this in 2019. Reported Pain Level Pain Score 4: Self Report Assessment PT Clinical Summary mrs. warren presents to skilled PT services for evaluation and treatment of L knee pain. she presents today with decreased L knee rom, L LE weakness, and pain with daily functional activities. she likely suffers from an internal derangement of the L knee. her L knee in general is more lax with lateral stability than the R knee . she would benefit from continued skilled PT to address her objective/functional deficits and return to her prior level functional activity performance/quality of life. Plan of Care Interventions Electrical Stimulation,Gait Training,Hot Pack/Cold Pack,Neuro Re-education,Patient/Caregiver Education,Therapeutic Activities,Therapeutic Exercise PT Services Indicated Yes Treatment Frequency and 3x weekly for 12 visits Duration These treatments will address the objective and functional deficits as defined above. The patient will be advanced safely and appropriately in order for the patient to progress towards his/her prior level of function. Additional exercises will be introduced and as well as a comprehensive home exercise program upon discharge, if needed, ?to ensure carryover of functional gains achieved in the clinic. This treatment plan has been reviewed and agreement upon by the patient.
--- NOTE | 2024-06-05 14:09 | PCPTNOTE ---
Patient called & cancelled scheduled appointment this date due to weather.
--- NOTE | 2024-06-10 11:28 | PCPTNOTE ---
Pt reports she is still sick and forgot she had an appointment today.
--- NOTE | 2024-06-25 17:06 | PCPTNOTE ---
Patient did not show up for scheduled appointment this date.
== END 2024-06-30 20:00 | disposition home or self-care (01) ==
LOC: CHSPT 14:54
PROVIDERS: PCP Internal Medicine; Visit Provider Internal Medicine
DX: M25.562 Pain in left knee (principal)
CPT/HCPCS: 97110; 97112; 97161; 97530

== ENCOUNTER 2024-06-09 12:27 | Emergency (ER) | payer OTHER, SELFPAY ==
[2024-06-09 12:27] VITALS: BP 136/92; PULSE 103; RESP 16; TEMP 37.2; O2SAT 93
[2024-06-09 12:36] VITALS: O2SAT 93
[2024-06-09 13:09] LABS: SARS-CoV-2 RNA PCR Negative (Negative)
[2024-06-09 13:10] LABS: Influenza A QL RT-PCR Negative (Negative); Influenza B QL RT-PCR Negative (Negative); RSV RNA, RT-PCR Negative (Negative)
--- NOTE | 2024-06-09 13:49 | ED.URI ---
HPI - URI/Sore Throat General Chief Complaint: Upper Respiratory Infection Stated Complaint: cold symptoms Time Seen by Provider: 06/09/24 12:28 Source: patient Mode of arrival: ambulatory Limitations: no limitations History of Present Illness HPI Narrative: patient is a 33-year-old female with significant past medical history that presents today for URI symptoms. Patient has had cough, congestion, rhinorrhea and fatigue for the last 4 days now. She states that she has felt consistently worse. She is taking OTC medications with no relief. She says she has just felt very very drowsy. MD elicited complaint: cough, sore throat, rhinorrhea and nasal congestion Onset (ago): day(s) Consistency: constant Severity: moderate Description of mucous: yellow Able to tolerate fluids by mouth: Yes Exacerbating factors: exertion Relieving factors: nothing Associated symptoms: chills, myalgias and diaphoresis Treatments prior to arrival: acetaminophen and cold medicine Related Data Home Medications ?Medication ?Instructions ?Recorded ?Confirmed ?Last Taken ?Type aripiprazole 5 mg tablet 5 mg PO DAILY 06/09/24 06/09/24 Unknown History prazosin 1 mg capsule 1 mg PO DAILY 06/09/24 06/09/24 Unknown History Allergies Allergy/AdvReac Type Severity Reaction Status Date / Time adhesive tape Allergy Rash Verified 06/09/24 12:31 Review of Systems Review of Systems: All systems reviewed & are unremarkable except as noted in HPI and below Constitutional: Constitutional: Reports as per HPI Eyes: Eyes: Reports no additional eye complaints ENT: Reports as per HPI, Reports nasal congestion and Reports sore throat Cardiovascular: Cardiovascular: Reports no additional cardiovascular complaints Respiratory: Respiratory: Reports as per HPI, Reports chest congestion and Reports cough Gastrointestinal: Gastrointestinal: Reports no additional gastrointestinal complaints Genitourinary: Genitourinary: Reports no additional female genitourinary complaints Musculoskeletal: Musculoskeletal: Reports no additional musculoskeletal complaints Integumentary/Breasts: Skin/Breast: Reports system reviewed and no additional complaints, except as docu Neurologic: Reports system reviewed and no additional complaints, except as documented Psychiatric: Psychiatric: Reports no additional psychiatric complaints Endocrine: Endocrine: Reports no additional endocrine complaints Hematologic/Lymphatic: Hematologic/Lymphatic: Reports no additional hematologic/lymphatic complaints Allergic/Immunologic: Allergic/Immunologic: Reports no additional allergic/immunologic complaints PMFSH Past Medical History Medical History Anxiety Kidney stone Depression Smoker Post depression Endometriosis Over weight Surgical History Surgical History Hx laparoscopic cholecystectomy H/O knee surgery Family History Family History Father Diabetes mellitus Sibling Diabetes mellitus Grandparent Liver problem Hep C w/o coma, chronic Social History Social History Smoking packs per day: 0.5 Smoking cigarettes per day: 10.0 Years smoked: 15 Smoking pack-years: 7.50 Smoking status: Current every day smoker Tobacco type: cigarettes Substance use: never Substance use type: other Other substance usage details: SMOKES CBD Last use: 12/08/19 Gender identity (if verbalized by the patient): Female Spiritual care concerns: No Exam Const: General: healthy appearing Nutritional Appearance: well nourished Orientation/consciousness: patient oriented x3 HENMT: Head: normal to inspection Ears: external ears normal Face/Nose/Sinus: Nasal discharge present Face and sinus: sinus tenderness Teeth and gingiva: dentition normal Eyes: Conjunctivae: conjunctivae normal Pupils: Equal, round and reactive pupils present EOM: EOMs intact bilaterally Neck: Neck: normal visual inspection Chest: Chest palpation & inspection: normal inspection of the chest Resp: Effort & Inspection: normal respiratory effort Auscultation: clear to auscultation bilaterally Cardio: Rate: regular rate Rhythm: regular rhythm GI: GI Palp: Yes Soft to palpation Back/Spine/Pelvis: Back: no CVA tenderness Skin: General skin exam: normal color Rashes: no rashes Wounds: no wounds Neuro: General: patient oriented x3 Cranial nerves: Yes Nystagmus not present Speech: normal speech Extrem: General: normal to inspection Psych: Mental Status: mental status grossly normal Affect: normal affect Attitude: cooperative Course Vital Signs Vital signs: Vital Signs Temperature 98.9 F 06/09/24 12:27 Pulse Rate 103 H 06/09/24 12:27 Respiratory Rate 16 06/09/24 12:27 Blood Pressure 136/92 H 06/09/24 12:27 Pulse Oximetry 93 06/09/24 12:27 Temperature 98.9 F 06/09/24 12:27 Pulse Rate 103 H 06/09/24 12:27 Respiratory Rate 16 06/09/24 12:27 Blood Pressure 136/92 H 06/09/24 12:27 Pulse Oximetry 93 06/09/24 12:36 Oxygen Delivery Room Air 06/09/24 12:36 MDM - URI/Sore Throat MDM Narrative Medical decision making narrative: Patient has had the URI symptoms for the past 4 days now. She has no exposure. Will swab her for COVID RSV and flu. Will base treatment based on the results of this. If all negative will treat as a bacterial sinusitis. Will treat with doxycycline and start her off at that here and that is on the rest of the pharmacy. Will also give her a Medrol Dosepak. Differential Diagnosis Differential diagnosis: Likely upper respiratory infection Medical Records Attestation: I reviewed the patient's medical records. Lab Data Attestation: I reviewed the patient's lab results. Labs: Lab Results 06/09/24 Range/Units 12:30 Influenza A (RT-PCR) Negative (Negative) Influenza B (RT-PCR) Negative (Negative) RSV (RT-PCR) Negative (Negative) SARS-CoV-2 RNA (RT-PCR) Negative (Negative) Discharge Plan Discharge Clinical Impression: Upper respiratory infection Patient Disposition: Home, Self-Care Condition: Stable Instructions: Antibiotic Form, Upper Respiratory Infection (ED) Patient Language: Tamazight Prescriptions: No Action prazosin 1 mg capsule 1 mg PO DAILY aripiprazole 5 mg tablet 5 mg PO DAILY Follow-up/Referrals: Elda Vargas MD [Primary Care Provider] - Time of Disposition: 14:00
[2024-06-09] MEDS: DOXYCYCLINE HYCLATE 100 MG TABLET PO (14:05)
[2024-06-09 14:17] VITALS: BP 125/88; PULSE 85; RESP 16; TEMP 37.1; O2SAT 95
== END 2024-06-09 14:17 | disposition home or self-care (01) ==
PROVIDERS: Emergency Provider Family Medicine; PCP Internal Medicine
DX: J06.9 Acute upper respiratory infection, unspecified (principal); F17.210 Nicotine dependence, cigarettes, uncomplicated; Z20.822 Contact with and (suspected) exposure to COVID-19
CPT/HCPCS: 87637; 99283; A9270

== ENCOUNTER 2024-09-21 10:50 | Outpatient (CLI) | payer OTHER, SELFPAY ==
--- NOTE | ~2024-09-21 | US_ITS ---
EXAMINATION: US right upper quadrant DATE: 09/21/2024 11:09 INDICATION: elevated liver enzymes TECHNIQUE: Multiple grayscale and Doppler ultrasound images of the right upper quadrant were obtained . COMPARISON: 07/20/2019. FINDINGS: The visualized portions of the pancreas are normal. Echogenic liver. No surface nodularity. Normal hepatopetal flow in the main portal vein. Gallbladder absent. The common bile duct measures 4 mm. There was no sonographic Stanton sign. IMPRESSION: Echogenic liver, most commonly due to steatosis but also can be seen with hepatitis and fibrosis. Status post cholecystectomy. Reviewed, dictated and finalized at location K. IMPRESSION: Echogenic liver, most commonly due to steatosis but also can be seen with hepat itis and fibrosis. Status post cholecystectomy.
--- OUTSIDE RECORDS SUMMARY | 2024-09-21 12:42 | XMS_ITS | Clinical Summary ---
Author Organization [facility] Address [facility] [place] [address] Care Team Providers Care Meat Specialist Name Role Phone Elda Vargas MD Primary Care Provider [phone] Allergies Active Allergy Reactions Criticality Noted Date Comments Tape Rash Low 01/28/2020 medical Medications ARIPiprazole (ABILIFY) 5 MG tablet Take 1 tablet (5 mg total) by mouth daily. Active Active Problems Problem Noted Date Diagnosed Date Aftercare following surgery 02/17/2020 Painful orthopaedic hardware 01/14/2020 Family History Medical History Relation Comments No Known Problems Brother 1 Anxiety Brother 2 Depression Brother 2 Diabetes Father Hypertension Father No Known Problems Mother Diabetes Sister Relation Status Comments Brother 1 Alive Brother 2 Father Alive Mother Alive Sister Alive Social History Tobacco Use Types Packs/Day Years Used Date Smoking Tobacco: Every Day Cigarettes 0.5 14 Smokeless Tobacco: Never Alcohol Use Standard Drinks/Week Comments Not Currently 0 (1 standard drink = 0.6 oz pur e alcohol) AUDIT-C Answer Date Recorded Q1: How often do you have a drink containing alc ohol? Never 01/13/2020 Average Number of Drinks Not on file 020 Frequency of Binge Drinking Not on file 12/25 Comments No Sex and Gender Information Value Date Recorded Sex Assigned at Not on file Legal Sex Female 7:41 AM CDT Gender Identity Not on file Sexual Orientation Not on file Last Filed Vital Signs Vital Sign Reading Time Taken Comments Blood Pressure 125/86 02/26/2024 8:02 AM CDT Pulse 65 02/26/2024 8:02 AM CDT Temperature 36.6 C (97.9 F) 02/26/2024 8:02 AM CDT Respiratory Rate 18 02/26/2024 8:02 AM CDT Oxygen Saturation 99% 02/26/2024 8:02 AM CDT Inhaled Oxygen Concentration - - Weight 101 kg (222 lb 10.6 oz) 02/26/2024 8:02 A M CDT Height 162.6 cm (5' 4 ) 02/26/2024 8:02 AM CDT Body Mass Index 38.22 02/26/2024 8:02 AM CDT Plan of Treatment Health Maintenance Due Date Last Done Comments Cervical Cancer Screening Pa p Smear (Age 30 to 64) Every 3 Years 1989 Annual Physical 1992 Hepatitis C 11/08/2007 DTaP, Tdap and Td Vaccines ( 1 - Tdap) 2008 Hepatitis B Vaccines (1 of 3 - 19+ 3-dose series) 2008 Pneumococcal Vaccine: Pediat rics (0 to 5 Years) and At-Risk Patients (6 to 49 Years) (1 of 2 - PCV) 2008 Cervical Cancer Screening Pa p with HPV Testing (Age 30 to 64) Every 5 Years 11/08/2019 Cervical Cancer Screening with HPV 11/08/2019 COVID-19 Vaccine (2023-2 5 season) 2024 HPV Vaccines Aged Out No longer eligi ble based on patient's age to complete this topic Meningococcal B Vaccine Aged Out No l onger eligible based on patient's age to complete this topic Meningococcal Vaccine Aged Out No ute yuriy eligible based on patient's age to complete this topic RSV Immunizations Under 20 Months Aged Out No longer eligible based on patient's age to complete this topic Medical Devices Explanted Type Area Forensics Team Director Device Identifier Shelf Expiration Date Model / Serial / Lot [employer] Sunitha - [id number] Explanted:Qty: 2 on 02/04/2020 at [facility] Left: Knee [employer] DIV [employer]A SUKHJINDER [id number] / / Insurance [employer] [facility] Care Teams Meat Specialist Relationship Specialty Start Date End Date Elda Vargas MD [address] [place] [id number] PCP - General INTERNAL MEDICINE 01/13/20
--- OUTSIDE RECORDS SUMMARY | 2024-09-21 12:42 | XMS_ITS | Encounter Summary ---
Author Organization [facility] Address [address] [place] [address] Care Team Providers Care Record Systems Analyst Name Role Phone Elda Vargas MD Primary Care Provider [phone] Encounter Details Date Type Department Care Team (Late st Contact Info) Description 11/01/2018 Abstract [facility]FL CONVERSION [address] [place] [address] , Generic Conversion, Social History Tobacco Use Types Packs/Day Years Used Date Smoking Tobacco: Never Assessed Comments Unknown Sex and Gender Information Value Date Recorded Sex Assigned at Not on file Legal Sex Female 7:41 AM CDT Gender Identity Not on file Sexual Orientation Not on file documented as of this encounter Plan of Treatment Not on file documented as of this encounter Visit Diagnoses Not on filedocumented in this encounter Additional Health Concerns Infection Onset Date Last Indicated Resolved Time COVID-19 Rule Out 02/02/2020 02/02/2020 02/04/2020 12:30 AM CDT documented as of this encounter Care Teams Record Systems Analyst Relationship Specialty Start Date End Date Elda Vargas MD [address] [place] [address] PCP - General INTERNAL MEDICINE 01/13/20 documented as of this encounter
--- OUTSIDE RECORDS SUMMARY | 2024-09-21 12:42 | XMS_ITS | Data Portability ---
Author Organization [facility] [place] Address [address] [place] [address] Assessment No assessment recorded. Plan of Treatment Reminders Order Date Submit Date Provider Last Modified By Organization Details Last Modified Time Details Appointments None recorded. Lab None recorded. Referral None recorded. Procedures None recorded. Surgeries None recorded. Imaging None recorded. Medication Orders Zomig ZMT 5 mg disintegra ting tablet 2019 020 INTERFACE [id number], [address] [place], [address], 0 10:43:27 escitalopr am 10 mg tablet 2019 020 INTERFACE [id number], [address] [place], [address], 0 10:38:56 Patient TargetsNo targets recorded. Patient InstructionsNo instructions recorded. Reason for Referral None Reported. Results Created Date Observation Date Name Description Value Unit Range Abnormal Flag Note LastModifiedBy Organization Detail LastModifiedTime Result Notes None recorded. Problems Name Problem SNOMED Code Status Onset Date Resolution Date Notes Provider Name and Address Organization Details Recorded Time finding Active 2018 Matern care for oth or susp poor fetl grth, third tri, unsp;Deshawn rded Elsewhere : No Locati on: [facility] So urce: EHR Chron ic: N Practic e ID: 0001 Bill able Time: 01:15:00 PM Not Available [facility] 0 17:20:12 Gestation period, 24 weeks 026681779 Active 2018 24 weeks gestation of ;Recorded Elsewhere : No Locati on: [facility] So urce: EHR Chron ic: N Practic e ID: 0001 Bill able Time: 04:00:00 PM Not Available [facility] 0 17:20:13 Gestation period, 32 weeks 4583245 Active 2018 32 weeks gestation of ;Recorded Elsewhere : No Locati on: [facility] So urce: EHR Chron ic: N Practic e ID: 0001 Bill able Time: 03:00:00 PM Not Available [facility] 0 17:20:13 Gestation period, 33 weeks 48049633 Active 2018 33 weeks gestation of ;Practice ID: 0001 Not Available [facility] 0 17:20:13 Normal in multigrav jordan 59857099695 4106 Active 2018 Encounter for suprvsn of normal , third trimester ;Practice ID: 0001 Not Available [facility] 0 17:20:13 Gestation period, 34 weeks 21811294 Active 2018 34 weeks gestation of ;Practice ID: 0001 Not Available [facility] 0 17:20:13 Gestation period, 35 weeks 23832024 Active 2018 35 weeks gestation of ;Practice ID: 0001 Not Available [facility] 0 17:20:13 Rubella screening status 270119921 Active 2018 Encounter for screening , unspecifi ed;Practi ce ID: 0001 Not Available [facility] 0 17:20:[address] Concept Active 2018 Maternal care for oth abnormali ty and damage, unsp;Prac sharon ID: 0001 Not Available [facility] 0 17:20:14 Placenta previa 89068519 Active 2018 Placenta previa specified as w/o hemorrhag e, third trimester ;Practice ID: 0001 Not Available [facility] 0 17:20:14 Gestation period, 30 weeks 93588409 Active 2018 30 weeks gestation of ;Practice ID: 0001 Not Available [facility] 0 17:20:14 Gestation period, 31 weeks 81465653 Active 2018 31 weeks gestation of ;Practice ID: 0001 Not Available [facility] 0 17:20:14 screening Active 2018 Encounter for screening for uncertain dates;Rec orded Elsewhere : No Locati on: [facility] So urce: EHR Chron ic: N Practic e ID: 0001 Bill able Time: 11:00:00 AM Not Available [facility] 0 17:20:15 Gestation period, 36 weeks 55085306 Active 2018 36 weeks gestation of ;Practice ID: 0001 [facility] Available [facility] 0 17:20:15 Gestation period, 37 weeks 72742302 Active 2018 37 weeks gestation of ;Practice ID: 0001 Not Available [facility] 0 17:20:16 Gestation period, 38 weeks 09075854 Active 2018 38 weeks gestation of ;Practice ID: 0001 Not Available [facility] 0 17:20:16 Term delivered 02739063 Active 2018 Encounter for full-term uncomplic ated delivery; Practice ID: 0001 Not Available [facility] 0 17:20:16 Single live from zavala 920470574 Active 2018 Single live ;Pra ctice ID: 0001 Not Available [facility] 0 17:20:17 Gestation period, 39 weeks 09772587 Active 2018 39 weeks gestation of ;Practice ID: 0001 Not Available [facility] 0 17:20:[address] Concept Active 2019 Anxiety disorder, unspecifi ed;Practi ce ID: 0001 Not Available [facility] 0 17:20:17 Lochia finding Active 2019 Encounter for routine postpartu m follow-up ;Practice ID: 0001 Not Available 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) w/o abn findings; Recorded Elsewhere : No Locati on: [facility] So urce: EHR Chron ic: N Practic e ID: 0001 Bill able Time: 01:00:00 PM Not Available [facility] 0 17:20:18 detection examinati on Active 2018 Encounter for test, result positive; Recorded Elsewhere : No Locati on: [facility] So urce: EHR Chron ic: N Practic e ID: 0001 Bill able Time: 01:00:00 PM Not Available [facility] 0 17:20:18 Evaluatio n finding Active 2018 Unsp abnormal cytolog findings in specmn from cervix uteri;Rec orded Elsewhere : No Locati on: [facility] So urce: EHR Chron ic: N Practic e ID: 0001 Bill able Time: 11:00:00 AM Not Available [facility] 0 17:20:20 screening for malformat ion Active 2018 Encounter for screening for malformat ions;Prac sharon ID: 0001 Not Available [facility] 0 17:20:22 Infection screening Active 2018 Encounter for screening for oth infec/par astc diseases; Recorded Elsewhere : No Locati on: [facility] So urce: EHR Chron ic: N Practic e ID: 0001 Bill able Time: 09:55:18 AM Not Available [facility] 0 17:20:23 Problem Notes None recorded. Medical Equipment None Reported. Allergies No known drug allergies Medications Name Sig Start Date Stop Date Status Note LastModified by Organization Details LastModified Time amoxicill in 500 mg capsule 12/30 completed Not Available Not Available Not Available hydrocodo ne 5 mg-acetam inophen 325 mg tablet active Not Available Not Available Not Available sumatript an 25 mg tablet TAKE 1 TABLET BY MOUTH, MAY REPEAT ONCE 2 HOURS AFTER FIRST DOSE active Not Available Not Available No t Available metronida zole 500 mg tablet take 4 tablets by oral route all at once 12/20 completed Not Available Not Available Not Available zolmitrip caruso 5 mg disintegr ating tablet active Not Available Not Available Not Available alprazola m 0.5 mg tablet take 1 tablet by oral route every 6 to 8 as needed 12/30 completed Not Available Not Available Not Available ibuprofen 600 mg tablet 12/20 completed Not Available Not Available Not Available amoxicill in 500 mg-potass ium clavulana te 125 mg tablet 12/30 completed Not Available Not Available Not Available escitalop alfonso 10 mg tablet TAKE 1 TABLET BY MOUTH EVERY DAY active Not Available Not Available No t Available tinidazol e 500 mg tablet take 4 tablet by oral route every day with food 07/02 completed Prescrib ed Elsewher e: No Locat ion: [facility] odify By: rene elaine DateTime : 04/13/20 02:51:32 PM Not Available Not Available Not Available 28 mg iron-800 mcg tablet 07/02 completed Prescrib ed Elsewher e: Yes Loca tion: [facility]ify By: rene Colon r DateTime : 04/09/20 03:30:00 PM Not Available Not Available Not Available Vitals Date Recorded Body weight Body mass index (BMI) Body height Systolic blood pressure Diastolic blood pressure Provider Name and Address Organization Details Last Updated DateTime 12/21/2019 28567.37 g 27.6 kg/m2 162.56 cm 105 mm[Hg] 67 mm[Hg] [facility] 0 10:24:46 Date Recorded Body height Provider Name an d Address Organization Details Last Updated DateTime 12/31/2019 162.56 cm [facility] 12/31/2019 11:00:58 Social History None recorded. Functional Status None recorded. Mental Status None recorded. Family History Relationship Description Onset Age of this Age Resolved Age Notes LastModified by Organization Details LastModified Time Father Diabetes mellitus [email or web address] Not available 2019 10:31:39 Father Asthma [email or web address] Not available 12/21/2019 10:31:48 Father Hypertensive disorder [email or web address] Not available 2019 10:31:57 Paternal Grandmother Diabetes mellitus [email or web address] Not available 2019 10:31:39 Sister Diabetes mellitus [email or web address] Not available 2019 10:31:39 Notes:Father: Hypertension, Asthma, Diabetes mellitus Paternal grandmother: Diabetes mellitus Sister: Diabetes mellitus Medical History No medical history recorded. Gynecological HistoryNo gynecological history recorded. Obstetrics History GPAL:G 0 P 0 0 0 0 Past Encounters Encounter ID Performer Location Encounter Start Date Encounter Closed Date Diagnosis/Indication Diagnosis SNOMED-CT Code Diagnosis ICD10 Code Diagnosis Note [id number] Rolando Carmona MD [place] [address] [address] 12/21/2019 10:14:41 12/21/2019 10:57:25 Female sterilization 49213397 Z30.2 This patient is an Xxx-year-o ld female who desires sterilizat ion. We both agreed to perform laparoscop ic bilateral tubal ligation. She understand s the risks, benefits, and alternativ es. She is completed the informed consent process and is ready to proceed. Depressive disorder 3548 9007 F32.9 Migraine 35953200 G43.90 9 [id number] Rolando Carmona MD [place] [address] [address] 12/31/2019 10:58:12 12/31/2019 11:24:31 Postoperative care 994048372 Z48.89 this patient is a 29-year-ol d female presents forpostopf ollow-up. She is 1 weekpostop from a laparoscop ic bilateral tubal ligation. She has no complaints . Her incisions are clean dry and intact and she is recovering normally. Health Concerns Section Related Observation LastModified by Organization Detai ls LastModified Time None Recorded Concern Status LastModified by Organization Details LastModified Time None Recorded Advance Directives Directive None Recorded Payers Encounter Date Sequence Insurance Name Policy Number Policy Valdes Covered Member ID Valdes Member ID Guarantor Name 12/21/2019 1 [facility] (MEDICAID HMO) [id number] Lupe Hayes [id number] 12/31/2019 1 [facility] (MEDICAID HMO) [id number] Lupe Birch [id number] Notes Date Note Type Note Provider Name and Address Organization Details Recorded Time 12/21/2019 text/html This patient is a 2p-year-old female who presents for preoperative care. The patient would like sterilization and we have agreed to perform laparoscopic bilateral tubal ligation. We have discussed alternatives in detail. The patient understands the procedure. The procedure was described to the patient in great detail. the patient also understands the risks. The risks were also explained in detail. She understands that injuries May occur during surgery. She understands these injuries can result in hospitalization, more surgery, and severe illness. She understands there is risk of hemorrhage and infection. Rolando Carmona MD [address], [place], [address], [facility] 12/21/2019 10:43:39 12/31/2019 text/html this patient is a 29-year-old female presents for postop follow-up. She is 1 week postop from a laparoscopic bilateral tubal ligation. She has no complaints. Her incisions are clean dry and intact and she is recovering normally. Rolando Carmona MD [address], [place], [address], [facility] 12/31/2019 11:23:31 OBGyn Episode Ob Episode Information Episode Created Date Number of Fetuses Patient Bloodtype Patient rh Status Prepregnancy Weight lbs Domestic Partner Domestic Partner Phone Father Name Tank Carpenter Status 12/21/19 20 1 CLOSED Fetus Data First Name Last Name Admitted to NICU Weight (g) Sex Living Outcome Pediatric Complications Fetus ID Race Codes Race Delivery Type [id number] Vaginal Delivery Jesu Calculation Initial Jesu Date Initial Exam Date Initial Exam Provider Initial Ultrasound Date Last Menstrual Period Date Ultra Sound Weeks Gestation 0 Eighteen To Twenty Week Jesu Update Ultra Sound Date Fundal Height At Umbil Quickening Date Ultra Sound Latest Weeks Gestation Final Jesu Confirmed By Final Jesu Confirmed Date Final Jesu Date Ultra Sound Latest Days Gestation 0 0 Menstrual History Last Menstrual Date Menses Monthly On Bcp Conception Prior Menses Frequency Hcg Plus Date Menarche Onset Age Delivery Information Delivery Date Delivery Type Labor Anesthesia Weeks Gestation Incision Type Labor Labor Length Hrs Delivered By Post Complications Tubal Sterilization Discharge Date Comments 2 Discharge Information Feeding Method Contraceptive Method Maternal HG B and HCT Levels Ob Episode Information Episode Created Date Number of Fetuses Patient Bloodtype Patient rh Status Prepregnancy Weight lbs Domestic Partner Domestic Partner Phone Father Name Tank Carpenter Status 12/21/19 20 1 CLOSED Fetus Data First Name Last Name Admitted to NICU Weight (g) Sex Living Outcome Pediatric Complications Fetus ID Race Codes Race Delivery Type , Spontane ous [id number] Jesu Calculation Initial Jesu Date Initial Exam Date Initial Exam Provider Initial Ultrasound Date Last Menstrual Period Date Ultra Sound Weeks Gestation 0 Eighteen To Twenty Week Jesu Update Ultra Sound Date Fundal Height At Umbil Quickening Date Ultra Sound Latest Weeks Gestation Final Jesu Confirmed By Final Jesu Confirmed Date Final Jesu Date Ultra Sound Latest Days Gestation 0 0 Menstrual History Last Menstrual Date Menses Monthly On Bcp Conception Prior Menses Frequency Hcg Plus Date Menarche Onset Age Delivery Information Delivery Date Delivery Type Labor Anesthesia Weeks Gestation Incision Type Labor Labor Length Hrs Delivered By Post Complications Tubal Sterilization Discharge Date Comments 8 Discharge Information Feeding Method Contraceptive Method Maternal HG B and HCT Levels Ob Episode Information Episode Created Date Number of Fetuses Patient Bloodtype Patient rh Status Prepregnancy Weight lbs Domestic Partner Domestic Partner Phone Father Name Tank Carpenter Status 12/21/19 20 1 CLOSED Fetus Data First Name Last Name Admitted to NICU Weight (g) Sex Living Outcome Pediatric Complications Fetus ID Race Codes Race Delivery Type [id number] Vaginal Delivery Jesu Calculation Initial Jesu Date Initial Exam Date Initial Exam Provider Initial Ultrasound Date Last Menstrual Period Date Ultra Sound Weeks Gestation 0 Eighteen To Twenty Week Jesu Update Ultra Sound Date Fundal Height At Umbil Quickening Date Ultra Sound Latest Weeks Gestation Final Jesu Confirmed By Final Jesu Confirmed Date Final Jesu Date Ultra Sound Latest Days Gestation 0 0 Menstrual History Last Menstrual Date Menses Monthly On Bcp Conception Prior Menses Frequency Hcg Plus Date Menarche Onset Age Delivery Information Delivery Date Delivery Type Labor Anesthesia Weeks Gestation Incision Type Labor Labor Length Hrs Delivered By Post Complications Tubal Sterilization Discharge Date Comments 7 Discharge Information Feeding Method Contraceptive Method Maternal HG B and HCT Levels
== END 2024-09-21 10:51 | disposition home or self-care (01) ==
LOC: CHSIMG 10:53
PROVIDERS: PCP Internal Medicine; Visit Provider Internal Medicine
DX: R74.01 Elevation of levels of liver transaminase levels (principal); Z90.49 Acquired absence of other specified parts of digestive tract
CPT/HCPCS: 76705

== ENCOUNTER 2024-10-10 08:26 | Outpatient (CLI) | payer OTHER, SELFPAY ==
--- NOTE | ~2024-10-10 | MR_ITS ---
MRI of the abdomen: Clinical indication: Abnormal LFTs. Technique: Coronal SSFSE ARC, WATER:coronal LAVA-FLEX, Coronal 2D FIESTA FatSat, Axial SSFSE BH ARC, Axial 3D DualEcho BH, Axial SSFSE-IR, Axial DWI b=500, Axial 2D FIESTA FatSat, pre and dynamic postco ntrast Axial LAVA ARC, postcontrast Coronal In and Opposed phase LAVA FLEX . Following intravenous ad ministration of 20 cc MultiHance gadolinium, T1-weighted fat-sat imaging was performed in the axial a nd coronal planes. Findings: Gallbladder absent. The common bile duct is normal in course and caliber. No filling defect s are seen within the CBD. No evidence of intrahepatic biliary ductal dilatation. The pancreatic duct is normal in size. Diffuse signal loss in the liver on out of phase images relative to in phase images is compatible dif fuse fatty infiltration. No focal hepatic mass or intrahepatic biliary dilatation. Spleen, pancreas, adrenals, kidneys appear normal. The aorta and the paraaortic regions appear normal. Impression: Diffuse fatty infiltration of the liver. Status post cholecystectomy. Reviewed, dictated and finalized at location . Impression: Diffuse fatty infiltration of the liver. Status post cholecystectomy.
--- OUTSIDE RECORDS SUMMARY | 2024-10-10 08:31 | XMS_ITS | Clinical Summary ---
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
--- OUTSIDE RECORDS SUMMARY | 2024-10-10 08:31 | XMS_ITS | Data Portability ---
Author Organization [facility] [place] Address [address] [place] [address] Assessment No assessment recorded. Plan of Treatment Reminders Order Date Submit Date Provider Last Modified By Organization Details Last Modified Time Details Appointments None recorded. Lab None recorded. Referral None recorded. Procedures None recorded. Surgeries None recorded. Imaging None recorded. Medication Orders Zomig ZMT 5 mg disintegra ting tablet 2019 020 INTERFACE [id number], [address] [place], [address], 0 10:43:27 escitalopr am 10 mg tablet 2019 020 INTERFACE [id number], [address] [place], [address], 0 10:38:56 Patient TargetsNo targets recorded. Patient [...] unsp;Deshawn rded Elsewhere : No Locati on: [facility] So urce: EHR Chron ic: N Practic e ID: 0001 Bill able Time: 01:15:00 PM Not Available [facility] 0 17:20:12 Gestation period, 24 weeks 290089538 Active 2018 24 weeks gestation of ;Recorded Elsewhere : No Locati on: [facility] So urce: EHR Chron ic: N Practic e ID: 0001 Bill able Time: 04:00:00 PM Not Available [facility] 0 17:20:13 Gestation period, 32 weeks 3742793 Active 2018 32 weeks gestation of ;Recorded Elsewhere : No Locati on: [facility] So urce: EHR Chron ic: N Practic e ID: 0001 Bill able Time: 03:00:00 PM Not Available [facility] 0 17:20:13 Gestation period, 33 weeks 73704819 Active 2018 33 weeks gestation of ;Practice ID: 0001 Not Available [facility] 0 17:20:13 Normal in multigrav jordan 51157042689 4106 Active 2018 Encounter for suprvsn of normal , third trimester ;Practice ID: 0001 Not Available [facility] 0 17:20:13 Gestation period, 34 weeks 85396517 Active 2018 34 weeks gestation of ;Practice ID: 0001 Not Available [facility] 0 17:20:13 Gestation period, 35 weeks 54651154 Active 2018 35 weeks gestation of ;Practice ID: 0001 Not Available [facility] 0 17:20:13 Rubella screening status 594828431 Active 2018 Encounter for screening , unspecifi ed;Practi ce ID: 0001 Not Available [facility] 0 17:20:[address] Concept Active 2018 Maternal care for oth abnormali ty and damage, unsp;Prac sharon ID: 0001 Not Available [facility] 0 17:20:14 Placenta previa 93254076 Active 2018 Placenta previa specified as w/o hemorrhag e, third trimester ;Practice ID: 0001 Not Available [facility] 0 17:20:14 Gestation period, 30 weeks 82966289 Active 2018 30 weeks gestation of ;Practice ID: 0001 Not Available [facility] 0 17:20:14 Gestation period, 31 weeks 56128308 Active 2018 31 weeks gestation of ;Practice ID: 0001 Not Available [facility] 0 17:20:14 screening Active 2018 Encounter for screening for uncertain dates;Rec orded Elsewhere : No Locati on: [facility] So urce: EHR Chron ic: N Practic e ID: 0001 Bill able Time: 11:00:00 AM Not Available [facility] 0 17:20:15 Gestation period, 36 weeks 04713529 Active 2018 36 weeks gestation of ;Practice ID: 0001 [facility] Available [facility] 0 17:20:15 Gestation period, 37 weeks 82588868 Active 2018 37 weeks gestation of ;Practice ID: 0001 Not Available [facility] 0 17:20:16 Gestation period, 38 weeks 67685279 Active 2018 38 weeks gestation of ;Practice ID: 0001 Not Available [facility] 0 17:20:16 Term delivered 69463289 Active 2018 Encounter for full-term uncomplic ated delivery; Practice ID: 0001 Not Available [facility] 0 17:20:16 Single live from zavala 900089396 Active 2018 Single live ;Pra ctice ID: 0001 Not Available [facility] 0 17:20:17 Gestation period, 39 weeks 20208833 Active 2018 39 weeks gestation of ;Practice ID: 0001 Not Available [facility] 0 17:20:[address] Concept Active 2019 Anxiety disorder, unspecifi ed;Practi ce ID: 0001 Not Available [facility] 0 17:20:17 Lochia finding Active 2019 Encounter for routine postpartu m follow-up ;Practice ID: 0001 Not Available [facility] 0 17:20:17 Gestation period, 26 weeks 43685347 Active 2018 26 weeks gestation of ;Recorded Elsewhere : No Locati on: [facility] So urce: EHR Chron ic: N Practic e ID: 0001 Bill able Time: 01:30:00 PM Not Available [facility] 0 17:20:[address] Concept Active 2018 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; Recorded Elsewhere : No Locati on: [facility] So urce: EHR Chron ic: N Practic e ID: 0001 Bill able Time: 01:00:00 PM Not Available [facility] 0 17:20:18 detection examinati on Active 2018 Encounter for test, result positive; Recorded Elsewhere : No Locati on: [facility] So urce: EHR Chron ic: N Practic e ID: 0001 Bill able Time: 01:00:00 PM Not Available [facility] 0 17:20:18 Evaluatio n finding Active 2018 Unsp abnormal cytolog findings in specmn from cervix uteri;Rec orded Elsewhere : No Locati on: [facility] So urce: EHR Chron ic: N Practic e ID: 0001 Bill able Time: 11:00:00 AM Not Available [facility] 0 17:20:20 screening for malformat ion Active 2018 Encounter for screening for malformat ions;Prac sharon ID: 0001 Not Available [facility] 0 17:20:22 Infection screening Active 2018 Encounter for screening for oth infec/par astc diseases; Recorded Elsewhere : No Locati on: [facility] So urce: EHR Chron ic: N Practic e ID: 0001 Bill able Time: 09:55:18 AM Not Available [facility] 0 17:20:23 Problem Notes None recorded. Medical [...] Prescrib ed Elsewher e: No Locat ion: [facility] odify By: rene elaine DateTime : 04/13/20 02:51:32 PM Not Available Not Available Not Available 28 mg iron-800 mcg tablet 07/02 completed Prescrib ed Elsewher e: Yes Loca tion: [facility]ify By: rene Colon r DateTime : 04/09/20 03:30:00 PM Not Available Not Available Not Available Vitals Date Recorded Body weight Body mass index (BMI) Body height Systolic blood pressure Diastolic blood pressure Provider Name and Address Organization Details Last Updated DateTime 12/21/2019 59315.37 g 27.6 kg/m2 162.56 cm 105 mm[Hg] 67 mm[Hg] [facility] 0 10:24:46 Date Recorded Body height Provider Name an d Address Organization Details Last Updated DateTime 12/31/2019 162.56 cm [facility] 12/31/2019 11:00:58 Social History None recorded. [...] SNOMED-CT Code Diagnosis ICD10 Code Diagnosis Note [id number] Rolando Carmona MD [place] [address] [address] 12/21/2019 10:14:41 12/21/2019 10:57:25 Female sterilization 66473828 Z30.2 This patient is an Xxx-year-o ld female who desires sterilizat ion. We both agreed to perform laparoscop ic bilateral tubal ligation. She understand s the risks, benefits, and alternativ es. She is completed the informed consent process and is ready to proceed. Depressive disorder 3548 9007 F32.9 Migraine 59992646 G43.90 9 [id number] Rolando Carmona MD [place] [address] [address] 12/31/2019 10:58:12 12/31/2019 11:24:31 Postoperative care 857756863 Z48.89 this patient is a 29-year-ol d [...] Valdes Member ID Guarantor Name 12/21/2019 1 [facility] (MEDICAID HMO) [id number] 0003 Lupe Hayes [id number] 12/31/2019 1 [facility] (MEDICAID HMO) [id number] 0003 Lupe Birch [id number] Notes Date Note Type Note Provider Name [...] infection. Rolando Carmona MD [address], [place], [address], [facility] 12/21/2019 10:43:39 12/31/2019 text/html this patient is a 29-year-old female presents for postop follow-up. She is 1 week postop from a laparoscopic bilateral tubal ligation. She has no complaints. Her incisions are clean dry and intact and she is recovering normally. Rolando Carmona MD [address], [place], [address], [facility] 12/31/2019 11:23:31 OBGyn Episode Ob Episode Information Episode Created Date Number of Fetuses Patient Bloodtype Patient rh Status Prepregnancy Weight lbs Domestic Partner Domestic Partner Phone Father Name Environmental Officer Status 12/21/19 20 1 CLOSED Fetus Data [...] Domestic Partner Domestic Partner Phone Father Name Environmental Officer Status 12/21/19 20 1 CLOSED Fetus Data [...] Domestic Partner Domestic Partner Phone Father Name Environmental Officer Status 12/21/19 20 1 CLOSED Fetus Data [...]
--- OUTSIDE RECORDS SUMMARY | 2024-10-10 08:31 | XMS_ITS | Encounter Summary ---
Author Organization [facility] Address [address] [place] [address] Care Team Providers Care Supervisor Abattoir Name Role Phone Elda Vargas MD Primary Care Provider [phone] Encounter Details Date Type Department Care Team (Late st Contact Info) Description 11/01/2018 Abstract SFL CONVERSION [address] [place] [address] , Generic Conversion, Social History Tobacco Use [...] documented as of this encounter Care Teams Supervisor Abattoir Relationship Specialty Start Date End Date Elda Vargas MD [address] [place] [address] PCP - General INTERNAL MEDICINE 01/13/20 documented as of this encounter
== END 2024-10-10 08:27 | disposition home or self-care (01) ==
PROVIDERS: PCP Internal Medicine; Visit Provider Internal Medicine
DX: R93.2 Abnormal findings on diagnostic imaging of liver and biliary tract (principal); R74.01 Elevation of levels of liver transaminase levels; K76.0 Fatty (change of) liver, not elsewhere classified; Z90.49 Acquired absence of other specified parts of digestive tract
CPT/HCPCS: 74183; A9577

== ENCOUNTER 2024-12-17 11:52 | Outpatient (CLI) | payer MEDICAID, SELFPAY ==
--- OUTSIDE RECORDS SUMMARY | 2024-12-17 11:55 | XMS_ITS | Encounter Summary ---
Author Organization [facility] Address [facility] [place] [address] Care Team Providers Care Hospitalist Program Director Name Role Phone Elda Vargas MD Primary Care Provider [phone] Encounter Details Date Type Department Care Team ([facility] st Contact Info) Description 11/01/2018 Abstract SFL CONVERSION [address] [place] [address] , Generic Conversion, Social History Tobacco Use [...] documented as of this encounter Care Teams Hospitalist Program Director Relationship Specialty Start Date End Date Elda Vargas MD [address] [place] [address] PCP - General INTERNAL MEDICINE 01/13/20 documented as of this encounter
--- OUTSIDE RECORDS SUMMARY | 2024-12-17 11:55 | XMS_ITS | Clinical Summary ---
Author Organization [facility] Address [address] [place] [address] Care Team Providers Care Compliance Program Manager Name Role Phone Elda Vargas MD Primary Care Provider [phone] Allergies Active Allergy Reactions Criticality Noted Date Comments Tape Rash Low 01/28/2020 medical Medications ARIPiprazole (ABILIFY) 5 MG tablet Take 1 tablet (5 mg total) by mouth daily. Active promethazine (PHENERGAN) 25 MG tablet Take 1.5 tablets (37.5 mg total) by mouth daily. Active topiramate (TOPAMAX) 100 MG tablet Take 1 tablet (100 mg total) by mouth daily. Active fluconazole (DIFLUCAN) 150 MG tablet Take 1 tablet (150 mg total) by mouth daily. 3 tablet 12/11/2024 Active doxycycline monohydrate 100 MG capsule Take 1 capsule (100 mg total) by mouth 2 (two) times daily for 10 days. 20 capsule 12/11/2024 12/22/19 25 Active predniSONE 50 MG tablet Take 1 tablet (50 mg total) by mouth daily for 7 days. 7 tablet 12/11/2024 12/19/19 25 Active Active Problems Problem Noted Date Diagnosed Date Aftercare following surgery 02/17/2020 Painful orthopaedic hardware 01/14/2020 Encounters Date Type Department Care Team Description 12/11/2024 10:32 AM CDT - 12/11/2024 12:15 PM CDT Emergency [facility] Emergency Room [id number] [place] [id number] Maren Conner MD Vaginal Pain; Vaginal Discharge Discharge Disposition: Home or Self Care (Routine Discharge) 12/11/2024 Travel from Last 3 Months Family History Medical History Relation Comments No Known Problems Brother 1 Anxiety Brother 2 Depression Brother 2 Diabetes Father Hypertension Father No Known Problems Mother Diabetes Sister Relation Status Comments Brother 1 Alive Brother 2 Father Alive Mother Alive Sister Alive Social History Tobacco Use Types Packs/Day Years Used Date Smoking Tobacco: Every Day Cigarettes 0.5 14 Smokeless Tobacco: Never Tobacco Cessation:Ready to Q uit: Not Asked; Counseling Given: Not Answered Alcohol Use Standard Drinks/Week Comments Not Currently [...] Sign Reading Time Taken Comments Blood Pressure 124/71 12/11/2024 11:55 AM CDT Pulse 73 12/11/2024 12:15 PM CDT Temperature 36.7 C (98.1 F) 12/11/2024 12:15 PM CDT Respiratory Rate 16 12/11/2024 12:1 5 PM CDT Oxygen Saturation 98% 12/11/2024 12: 15 PM CDT Inhaled Oxygen Concentration - - Weight 85.3 kg (188 lb) 12/11/2024 10:4 7 AM CDT On 2 different weightloss medications Height 162.6 cm (5' 4) 12/11/2024 10:4 7 AM CDT Body Mass Index 32.27 12/11/2024 10:47 AM CDT Plan of Treatment Health Maintenance [...] Years) (1 of 2 - PCV) 2008 HPV Vaccines (1 - 3-dose SCD M series) 2016 Cervical Cancer Screening Don p with HPV Testing (Age 30 to 64) Every 5 Years 11/08/2019 Cervical Cancer Screening with HPV 11/08/2019 COVID-19 Vaccine (2023-2 5 season) 2024 Meningococcal B Vaccine Aged Out No l onger eligible based on patient's age to complete this topic Meningococcal Vaccine Aged Out No ute yuriy eligible based on patient's age to complete this topic RSV Immunizations Under 20 Months Aged Out No longer eligible based on patient's age to complete this topic Medical Devices Explanted Type Area Parts Cleaner Device Identifier Shelf Expiration Date Model / Serial / Lot [employer] - [id number] Explanted:Qty: 2 on 02/04/2020 at [facility] Left: Knee [employer] [id number] / / Procedures Procedure Name Priority Date/Time Associated Diagnosis Comments CHLAMYDIA GC RNA STAT 12/11/2024 10:4 0 AM CDT URINALYSIS, AUTO, COMPLETE STAT 12/11/2024 10:40 AM CDT from Last 3 Months Results * CHLAMYDIA GC RNA (12/11/2024 10:40 AM CDT) SPECIMEN SOURCE URINE 11:05 AM CDT [facility] CHLAMYDIA PCR NEGATIVE NEGATIVE 12/14/2024 12:26 PM CDT [facility] Comment:PERFORMED BY NUCLEIC ACID AMPLIFICATION N.GONORRHOEAE RNA TMA NEGATIVE NEGATIVE 12/14/2024 12:26 PM CDT [facility] Comment:PERFORMED BY NUCLEIC ACID AMPLIFICATION URINE SPECIMEN / Unknown 12/11/2024 10:40 AM CDT us Maren Conner MD MICROBIOLOGY - GENERAL ORDERABL ES Final Result [facility] [address] [place] [address], [place] [phone] [facility] [address] [place] [address], [place] [phone] * (ABNORMAL) Urinalysis, Auto, Complete (12/11/2024 10:40 AM CDT) COLOR (U) YELLOW 12/11/2024 11:24 AM CDT [facility] TRANSPARENCY HAZY 12/11/2024 11:24 AM CDT [facility] SPECIFIC GRAVITY (U) 1.010 1.000 - 1.030 12/11/2024 11:24 AM CDT [facility] U PH 6.5 5.0 - 9.0 12/11/2024 11:24 AM CDT [facility] LEUKOCYTES (U) 2+(A) NEGATIVE 12/11/2024 11:24 AM CDT [facility] NITRITES NEGATIVE NEGATIVE 12/11/2024 11:24 AM CDT [facility] PROTEIN RANDOM (U) NEGATIVE NEGATIVE 12/11/2024 11:24 AM CDT [facility] GLUCOSE (U) NEGATIVE NEGATIVE 12/11/2024 11:24 AM CDT [facility] KETONES MG/DL (U) NEGATIVE NEGATIVE 12/11/2024 11:24 AM T [facility] BILIRUBIN (U) NEGATIVE NEGATIVE 12/11/2024 11:24 AM CDT [facility] BLOOD (U) TRACE(A) NEGATIVE 12/11/2024 11:24 AM CDT [facility] WBC/HPF 10-25 0 - 5 /HPF 12/11/2024 11:24 AM CDT [facility] RBC/HPF 0-5 0 - 5 /HPF 12/11/2024 11:24 AM CDT [facility] EPI/HPF MODERATE /HPF 12/11/2024 11:24 AM CDT [facility] URINE SPECIMEN OBTAINED BY CLEAN CATCH PROCEDURE / Unknown 12/11/2024 10:40 AM CDT Maren Conner MD URINE ORDERABLES Final Result [facility] [address] [place] [address], from Last 3 Months Insurance MEDICAID Care Teams Compliance Program Manager Relationship Specialty Start Date End Date Elda Vargas MD [address] [place] [address] PCP - General INTERNAL MEDICINE 01/13/20
--- OUTSIDE RECORDS SUMMARY | 2024-12-17 11:55 | XMS_ITS | Data Portability ---
Author Organization [facility] [place] Address [address] [place] [address] Assessment No assessment recorded. Plan of Treatment Reminders Order Date Submit Date Provider Last Modified By Organization Details Last Modified Time Details Appointments None recorded. Lab None recorded. Referral None recorded. Procedures None recorded. Surgeries None recorded. Imaging None recorded. Medication Orders Zomig ZMT 5 mg disintegra ting tablet 2019 020 INTERFACE [id number], [address] [place], [address], 0 10:43:27 escitalopr am 10 mg tablet 2019 020 INTERFACE [id number], [address] [place], [address], 0 10:38:56 Patient TargetsNo targets recorded. Patient InstructionsNo instructions recorded. Reason for Referral None Reported. Results Created Date Observation Date Name Description Value Unit Range Abnormal Flag Note LastModifiedBy Organization Detail LastModifiedTime Result Notes None recorded. Problems Name Problem SNOMED Code Status Onset Date Resolution Date Notes Provider Name and Address Organization Details Recorded Time SNOMED CT Concept Active 2018 Encntr for bioinformatics associate exam (general) (routine) w/o abn findings; Recorded Elsewhere : No Locati on: [facility] So urce: EHR Chron ic: N Practic e ID: 0001 Bill able Time: 01:00:00 PM Not Available [facility] 0 17:20:18 detection examinati on Active 2018 Encounter for test, result positive; Recorded Elsewhere : No Locati on: [facility] So urce: EHR Chron ic: N Practic e ID: 0001 Bill able Time: 01:00:00 PM [facility] 0 17:20:18 screening Active 2018 Encounter for screening for uncertain dates;Rec orded Elsewhere : No Locati on: [facility] So urce: EHR Chron ic: N Practic e ID: 0001 Bill able Time: 11:00:00 AM Not Available [facility] 0 17:20:15 Evaluatio n finding Active 2018 Unsp abnormal cytolog findings in specmn from cervix uteri;Rec orded Elsewhere : No Locati on: [facility] So urce: EHR Chron ic: N Practic e ID: 0001 Bill able Time: 11:00:00 AM Not Available [facility] 0 17:20:20 Infection screening Active 2018 Encounter for screening for oth infec/par astc diseases; Recorded Elsewhere : No Locati on: [facility] So urce: EHR Chron ic: N Practic e ID: 0001 Bill able Time: 09:55:18 AM Not Available [facility] 0 17:20:23 screening for malformat ion Active 2018 Encounter for screening for malformat ions;Prac sharon ID: 0001 Not Available [facility] 0 17:20:22 Gestation period, 24 weeks 985580930 Active 2018 24 weeks gestation of ;Recorded Elsewhere : No Locati on: [facility] So urce: EHR Chron ic: N Practic e ID: 0001 Bill able Time: 04:00:00 PM Not [facility] 0 17:20:13 Gestation period, 26 weeks 92134757 Active 2018 26 weeks gestation of ;Recorded Elsewhere : No Locati on: [facility] So urce: EHR Chron ic: N Practic e ID: 0001 Bill able Time: 01:30:00 PM Not Available [facility] 0 17:20:17 Rubella screening status 619335532 Active 2018 Encounter for screening , unspecifi ed;Practi ce ID: 0001 Not Available [facility] 0 17:20:14 finding Active 2018 Matern care for oth or susp poor fetl grth, third tri, unsp;Deshawn rded Elsewhere : No Locati on: [facility] So urce: EHR Chron ic: N Practic e ID: 0001 Bill able Time: 01:15:00 PM Not Available [facility] 0 17:20:[address] Concept Active 2018 Maternal care for oth abnormali ty and damage, unsp;Prac sharon ID: 0001 Not Available [facility] 0 17:20:14 Placenta previa 66572260 Active 2018 Placenta previa specified as w/o hemorrhag e, third trimester ;Practice ID: 0001 Not Available [facility] 0 17:20:14 Gestation period, 30 weeks 58404391 Active 2018 30 weeks gestation of ;Practice ID: 0001 Not Available [facility] 0 17:20:14 Gestation period, 31 weeks 09858271 Active 2018 31 weeks gestation of ;Practice ID: 0001 Not Available [facility] 0 17:20:14 Gestation period, 32 weeks 9090714 Active 2018 32 weeks gestation of ;Recorded Elsewhere : No Locati on: [facility] So urce: EHR Chron ic: N Practic e ID: 0001 Bill able Time: 03:00:00 PM Not Available [facility] 0 17:20:13 Gestation period, 33 weeks 90530941 Active 2018 33 weeks gestation of ;Practice ID: 0001 Not Available [facility] 0 17:20:13 Normal in multigrav jordan [id number] 4106 Active 2018 Encounter for suprvsn of normal , third trimester ;Practice ID: 0001 Not Available [facility] 0 17:20:13 Gestation period, 34 weeks 09644708 Active 2018 34 weeks gestation of ;Practice ID: 0001 Not Available [facility] 0 17:20:13 Gestation period, 35 weeks 43800024 Active 2018 35 weeks gestation of ;Practice ID: 0001 Not Available [facility] 0 17:20:13 Gestation period, 36 weeks 17633801 Active 2018 36 weeks gestation of ;Practice ID: 0001 Not Available [facility] 0 17:20:15 Gestation period, 37 weeks 96306093 Active 2018 37 weeks gestation of ;Practice ID: 0001 Not Available [facility] 0 17:20:16 Gestation period, 38 weeks 17648818 Active 2018 38 weeks gestation of ;Practice ID: 0001 Not Available [facility] 0 17:20:16 Term delivered 40126545 Active 2018 Encounter for full-term uncomplic ated delivery; Practice ID: 0001 Not Available [facility] 0 17:20:16 Single live from zavala 590233563 Active 2018 Single live ;Pra ctice ID: 0001 Not Available [facility] 0 17:20:17 Gestation period, 39 weeks 65897173 Active 2018 39 weeks gestation of ;Practice ID: 0001 Not Available [facility] 0 17:20:[address] Concept Active 2019 Anxiety disorder, unspecifi ed;Practi ce ID: 0001 Not Available [facility] 0 17:20:17 Lochia finding Active 2019 Encounter for routine postpartu m follow-up ;Practice ID: 0001 Not Available [facility] 0 17:20:17 Problem Notes None recorded. Medical Equipment None [...] Prescrib ed Elsewher e: No Locat ion: [facility] odify By: rene elaine DateTime : 04/13/20 02:51:32 PM Not Available Not Available Not Available 28 mg iron-800 mcg tablet 07/02 completed Prescrib ed Elsewher e: Yes [facility] By: rene Colon r DateTime : 04/09/20 03:30:00 PM Not Available Not Available Not Available Vitals Date Recorded Body weight Body mass index (BMI) Body height Systolic And Diastolic Provider Name and Address Organization Details Last Updated DateTime 12/21/2019 36965.37 g 27.6 kg/m2 162.56 cm 105/67 mm[Hg] [facility] 12/21/2019 10:24:46 Date Recorded Body height Provider Name an d Address Organization Details Last Updated DateTime 12/31/2019 162.56 cm [facility] 12/31/2019 11:00:58 Social History None recorded. [...] SNOMED-CT Code Diagnosis ICD10 Code Diagnosis Note [id number] Rolando Carmona MD [place] [address] [address] 12/21/2019 10:14:41 12/21/2019 10:57:25 Female sterilization 82588410 Z30.2 This patient is an [age]xx-year-o ld female who desires sterilizat ion. We both agreed to perform laparoscop ic bilateral tubal ligation. She understand s the risks, benefits, and alternativ es. She is completed the informed consent process and is ready to proceed. Depressive disorder 3548 9007 F32.9 Migraine 02579529 G43.90 9 [id number] Rolando Carmona MD [place] [address] [address] 12/31/2019 10:58:12 12/31/2019 11:24:31 Postoperative care 813883124 Z48.89 this patient is a 29-year-ol d [...] Recorded Advance Directives Directive None Recorded Payers Insurance Date Sequence Insurance Name Policy Number Policy Valdes Covered Member ID Valdes Member ID Guarantor Name 12/28/2019 1 [employer] [facility] (MEDICAID HMO) [id number] Lupe Birch [id number] Notes Date Note Type Note Provider Name [...] infection. Rolando Carmona MD [address], [place], [address], [facility] 12/21/2019 10:43:39 12/31/2019 text/html this patient is a 29-year-old female presents for postop follow-up. She is 1 week postop from a laparoscopic bilateral tubal ligation. She has no complaints. Her incisions are clean dry and intact and she is recovering normally. Rolando Carmona MD [address], [place], [address], [facility] 12/31/2019 11:23:31 OBGyn Episode Ob Episode Information Episode Created Date Number of Fetuses Patient Bloodtype Patient rh Status Prepregnancy Weight lbs Domestic Partner Domestic Partner Phone Father Name [employer] Pro Status 12/21/19 20 1 CLOSED Fetus Data [...] Domestic Partner Domestic Partner Phone Father Name [employer] Pro Status 12/21/19 20 1 CLOSED Fetus Data [...] Domestic Partner Domestic Partner Phone Father Name [employer] Pro Status 12/21/19 20 1 CLOSED Fetus Data [...]
[2024-12-17 13:20] LABS: Alanine Aminotransferase 77 U/L (6-35); Albumin Level 4.2 g/dL (3.5-5.1); Alkaline Phosphatase 64 U/L (38-126); Aspartate Amino Transferase 47 U/L (14-36); Bilirubin,Total 0.9 mg/dL (0.2-1.3); Total Protein 7.4 g/dL (6.3-8.2)
== END 2024-12-17 11:53 | disposition home or self-care (01) ==
LOC: CHSLAB 11:53
PROVIDERS: PCP Internal Medicine; Visit Provider Nurse Practitioner Family
DX: K76.0 Fatty (change of) liver, not elsewhere classified (principal); R79.89 Other specified abnormal findings of blood chemistry
CPT/HCPCS: 36415; 80076

== ENCOUNTER 2024-12-26 12:46 | Outpatient (CLI) | payer MEDICAID, SELFPAY ==
--- OUTSIDE RECORDS SUMMARY | 2024-12-26 12:49 | XMS_ITS | Encounter Summary ---
Author Organization [facility] Address [facility] [place] [address] Care Team Providers Care Nephrologist Name Role Phone Elda Vargas MD Primary Care Provider [phone] Encounter Details Date Type Department Care Team ([facility] st Contact Info) Description 11/01/2018 Abstract SFL CONVERSION [address] [place] [address] , Generic Conversion, Social History [...] documented as of this encounter Care Teams Nephrologist Relationship Specialty Start Date End Date Elda Vargas MD [address] [place] [address] PCP - General INTERNAL MEDICINE 01/13/20 documented as of this encounter
--- OUTSIDE RECORDS SUMMARY | 2024-12-26 12:49 | XMS_ITS | Clinical Summary ---
Author Organization [facility] Address [address] [place] [address] Care Team Providers Care Warehouse Administrator Name Role Phone Elda Vargas MD Primary Care Provider [phone] Allergies Active Allergy Reactions Criticality Noted Date [...] mg total) by mouth daily. 3 tablet 5 Active doxycycline monohydrate 100 MG capsule Take 1 capsule (100 mg total) by mouth 2 (two) times daily for 10 days. 20 capsule 5 12/22/19 25 predniSONE 50 MG tablet Take 1 tablet (50 mg total) by mouth daily for 7 days. 7 tablet 5 12/19/19 25 Active Problems Problem Noted Date Diagnosed Date Aftercare following surgery 02/17/2020 Painful orthopaedic hardware 01/14/2020 Encounters Date Type Department Care Team Description 12/11/2024 10:32 AM CDT - 12/11/2024 12:15 PM CDT Emergency [facility] Emergency Room [id number] [place] [id number] Maren Conner MD Vaginal Pain; Vaginal Discharge [...] this topic Medical Devices Explanted Type Area Greenhouse Superintendent Device Identifier Shelf Expiration Date Model / Serial / Lot Guidewire Babb - [id number] Explanted:Qty: 2 on 02/04/[address] [facility] Left: Knee [employer] [id number] / / Procedures Procedure Name Priority Date/Time Associated Diagnosis Comments CHLAMYDIA GC RNA STAT 12/11/2024 10:4 0 AM CDT URINALYSIS, AUTO, COMPLETE STAT 12/11/2024 10:40 AM CDT from Last 3 Months Results * CHLAMYDIA GC RNA (12/11/2024 10:40 AM CDT) SPECIMEN SOURCE URINE 11:[address] [facility] CHLAMYDIA PCR NEGATIVE NEGATIVE 12/14/2024 12:26 PM CDT [facility] Comment:PERFORMED BY NUCLEIC ACID AMPLIFICATION N.GONORRHOEAE RNA TMA NEGATIVE NEGATIVE 12/14/2024 12:26 PM CDT [facility] Comment:PERFORMED BY NUCLEIC ACID AMPLIFICATION URINE SPECIMEN / Unknown 12/11/2024 10:40 AM CDT us Maren Conner MD MICROBIOLOGY - GENERAL ORDERABL ES Final Result [facility] [address] [place] [address], [place] [phone] [facility] [address] [place] [address], [place] [phone] * (ABNORMAL) Urinalysis, Auto, Complete (12/11/2024 10:40 AM CDT) COLOR (U) YELLOW 12/11/2024 11:[address] [facility] TRANSPARENCY HAZY 12/11/2024 11:[address] [facility] SPECIFIC GRAVITY (U) 1.010 1.000 - 1.030 12/11/2024 11:[address] [facility] U PH 6.5 5.0 - 9.0 12/11/2024 11:[address] [facility] LEUKOCYTES (U) 2+(A) NEGATIVE 12/11/2024 11:[address] [facility] NITRITES NEGATIVE NEGATIVE 12/11/2024 11:[address] [facility] PROTEIN RANDOM (U) NEGATIVE NEGATIVE 12/11/2024 11:[address] [facility] GLUCOSE (U) NEGATIVE NEGATIVE 12/11/2024 11:[address] [facility] KETONES MG/DL (U) NEGATIVE NEGATIVE 12/11/2024 11:[address] [facility] BILIRUBIN (U) NEGATIVE NEGATIVE 12/11/2024 11:[address] [facility] BLOOD (U) TRACE(A) NEGATIVE 12/11/2024 11:[address] [facility] WBC/HPF 10-25 0 - 5 /HPF 12/11/2024 11:[address] [facility] RBC/HPF 0-5 0 - 5 /HPF 12/11/2024 11:[address] [facility] EPI/HPF MODERATE /HPF 12/11/2024 11:[address] [facility] URINE SPECIMEN OBTAINED BY CLEAN CATCH PROCEDURE / Unknown 12/11/2024 10:40 AM CDT us Maren Conner MD URINE ORDERABLES Final Result [facility] [address] [place] [address], [place] [phone] from Last 3 Months Insurance [facility] [place] [address] Care Teams Warehouse Administrator Relationship Specialty Start Date End Date Elda Vargas MD [address] [place] [address] PCP - General INTERNAL MEDICINE 01/13/20
[2024-12-26 13:01] LABS: Hematocrit 46.8 % (35.0-49.0); Hemoglobin 15.1 g/dL (12.0-15.0); Mean Corpuscular HGB Conc 32.3 g/dL (32-36); Mean Corpuscular Hemoglobin 30.6 pg (27.0-31.0); Mean Corpuscular Volume 94.7 fL (78.0-102.0); Platelet Count Result 344 K/mm3 (150-420); Red Blood Count 4.94 M/mm3 (4.20-5.40); White Blood Count 9.8 K/mm3 (4.8-10.8)
[2024-12-26 13:03] LABS: Add Urine Microscopic? YES; Appearance Urine Clear (Clear); Glucose Urine UA Negative (Negative); Leukocyte Esterase Ur Negative (Negative); Nitrate Urine Negative (Negative); Specific Grav Ur 1.020 (1.010-1.020)
[2024-12-26 13:11] LABS: Hemoglobin A1C 5.2 % (<5.7)
[2024-12-26 13:23] LABS: Alanine Aminotransferase 59 U/L (6-35); Albumin Level 4.3 g/dL (3.5-5.1); Alkaline Phosphatase 65 U/L (38-126); Anion Gap 5 mmol/L (4-12); Aspartate Amino Transferase 33 U/L (14-36); Bilirubin,Total 1.4 mg/dL (0.2-1.3); Blood Urea Nitrogen 9 mg/dL (7-17); Calcium 9.2 mg/dL (8.4-10.2); Carbon Dioxide 26 mmol/L (22-30); Chloride 110 mmol/L (98-107); Cholesterol 180 mg/dL (0-200); Estimated Glomerular Filt Rate > 60; Glucose 98 mg/dL (65-110); HDL Direct 46 mg/dL; Osmolality Calculated 290 mOsm/kg (285-295); Potassium 4.1 mmol/L (3.4-5.0); Sodium 141 mmol/L (137-145); Total Protein 7.4 g/dL (6.3-8.2); Triglycerides 141 mg/dL (<150)
== END 2024-12-26 12:47 | disposition home or self-care (01) ==
LOC: CHSLAB 12:47
PROVIDERS: PCP Internal Medicine; Visit Provider Internal Medicine
DX: E78.2 Mixed hyperlipidemia (principal); R73.01 Impaired fasting glucose; R74.01 Elevation of levels of liver transaminase levels
CPT/HCPCS: 36415; 80053; 80061; 81001; 83036; 85027